=== PATIENT | male | born 1960 | race Caucasian/White ===

== ENCOUNTER 2016-04-24 07:53 | Day surgery (SDC) | payer MEDICAID ==
[~2016-04-24 07:53] MED LIST: Dexamethasone 4 MG/ML 5 ML MDV ONE; Lactated Ringers 1,000 ML IV SCH; Midazolam 1 MG/ML 2 ML SDV ONE; Ondansetron 4 MG/2 ML SDV ONE; Propofol 200 MG/20 ML SDV ONE; ceFAZolin 2 GM in Premix Bag 1 BAG IV SCH; fentaNYL 250 MCG/5 ML SDV ONE
[2016-04-24] MEDS ORDERED: Lidocaine 1% 50 ML MDV ONE (08:07)
--- NOTE | 2016-04-24 08:49 | PCM.PREANE ---
Preanesthetic Assessment - Anesthesia/Transfusion/Family Hx Anesthesia History: Prior Anesthesia Without Reaction Other Type of Anesthesia Reaction Comment: wakes up combative Transfusion History: No Prior Transfusion(s) - Physical Assessment NPO Status Date: 04/23/16 NPO Status Time: 20:00 O2 Sat by Pulse Oximetry: 96 Respiratory Rate: 18 Vital Signs: Last Vital Signs Temp 36.7 C 04/24/16 08:10 Pulse 77 04/24/16 08:10 Resp 18 04/24/16 08:10 BP 147/87 H 04/24/16 08:10 Pulse Ox 96 04/24/16 08:10 Height: 1.83 m Weight: 117 kg - Allergies Allergies/Adverse Reactions: Allergies Allergy/AdvReac Type Severity Reaction Status Date / Time No Known Allergies Allergy Verified 08/31/15 02:07 PreAnesthesia Questionnaire HEENT History: Reports: None Cardiovascular History: Reports: Hypertension (surgery cancelled one month ago for uncontrolled htn, meds adjusted, BP good today), Other (see below) (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) Gastrointestinal History: Reports: GERD Musculoskeletal History: Reports: Arthritis Other Musculoskeletal History: knee and shoulder pain Psychiatric History: Reports: Anxiety, Depression Endocrine/Metabolic History: Reports: Obesity/BMI 30+ - Infectious Disease History Infectious Disease History: Reports: None - Past Surgical History Head Surgeries/Procedures: Reports: None HEENT Surgical History: Reports: None GI Surgical History: Reports: Hernia, inguinal Neurological Surgical History: Reports: C-Spine Other Neurological Surgeries/Procedures: neck surgery, C-1, C-2 Other Musculoskeletal Surgeries/Procedures:: surgery on rt elbow for bone spurs - SUBSTANCE USE Smoking Status *Q: Former Smoker Tobacco Use Within Last Twelve Months: Other (see below) Second Hand Smoke Exposure: No Days Per Week of Alcohol Use: 7 Number of Drinks Per Day: 1 Total Drinks Per Week: 7 Recreational Drug Use History: No - HOME MEDS Home Medications: Home Meds Sertraline [Zoloft] 50 mg PO DAILY 05/02/15 [History] LORazepam [LORazepam] 1 tab PO ASDIRECTED 08/26/15 [History] Atenolol/Chlorthalidone [Atenolol-Chlorthalidone 100-25] 1 tab PO DAILY [History] traMADol HCl [Tramadol HCl] 1 tab PO ASDIRECTED PRN 04/22/16 [History] - CURRENT (IN HOUSE) MEDS Current Meds: Current Medications Lactated Ringer's (Ringers, Lactated) 1,000 mls @ 100 mls/hr IV ASDIRECTED ANMOL Last Admin: 04/24/16 08:12 Dose: 100 mls/hr Cefazolin Sodium/Dextrose 2 gm (/ Premix) 50 mls @ 100 mls/hr IV ONCALL ANMOL Discontinued Medications Dexamethasone (Dexamethasone) Confirm Administered Dose 20 mg .ROUTE .STK-MED ONE Stop: 04/24/16 07:26 Fentanyl (Sublimaze) Confirm Administered Dose 250 mcg .ROUTE .STK-MED ONE Stop: 04/24/16 07:27 Lidocaine HCl (Xylocaine-Mpf 1%) Confirm Administered Dose 5 ml .ROUTE .STK-MED ONE Stop: 04/24/16 07:26 Lidocaine HCl (Xylocaine 1%) Confirm Administered Dose 50 ml .ROUTE .STK-MED ONE Stop: 04/24/16 08:08 Midazolam HCl (Versed 1 Mg/Ml) Confirm Administered Dose 2 mg .ROUTE .STK-MED ONE Stop: 04/24/16 07:28 Ondansetron HCl (Zofran) Confirm Administered Dose 4 mg .ROUTE .STK-MED ONE Stop: 04/24/16 07:26 Propofol (Diprivan 20 Ml) Confirm Administered Dose 200 mg .ROUTE .STK-MED ONE Stop: 04/24/16 07:28 Preanesthetic Assessment - ANESTHESIA/TRANSFUSION/FAMILY HX Anesthesia/Transfusion History: Prior Anesthesia Other Type of Anesthesia Reaction Comment: wakes up combative Family History of Anesthesia Reaction: No - REVIEW OF SYSTEMS Constitutional: Reports: no symptoms ASPHALT BLENDER: Reports: no symptoms Respiratory: Reports: no symptoms Cardiovascular: Reports: no symptoms GI: Reports: no symptoms Other: Reports: None - PHYSICAL ASSESSMENT O2 Sat by Pulse Oximetry: 96 RR: 18 Vital Signs: Last Vital Signs Temp 36.7 C 04/24/16 08:10 Pulse 77 04/24/16 08:10 Resp 18 04/24/16 08:10 BP 147/87 H 04/24/16 08:10 Pulse Ox 96 04/24/16 08:10 Height: 1.83 m Weight: 117 kg NPO Status Date: 04/23/16 NPO Status Time: 20:00 ASA Class: 2 Mental Status: Alert & Oriented x3 Airway Class: Mallampati = 1 Dentition: Reports: Normal Dentition ROM/Head Extension: Full Respiratory Status: lungs clear to auscultation bilaterally Cardiovascular Status: regular rate & rhythm, normal S1, S2, no murmur - ALLERGIES Allergies/Adverse Reactions: Allergies Allergy/AdvReac Type Severity Reaction Status Date / Time No Known Allergies Allergy Verified 08/31/15 02:07 - BLOOD Blood Available: No - ANESTHESIA PLAN Preop Beta Melvin: No Anesthesia Type Planned: General Anesthesia - ACKNOWLEDGEMENTS Pt an Appropriate Candidate for the Planned Anesthesia: Yes Alternatives and Risks of Anesthesia Discussed w Pt/Guardian: Yes Pt/Guardian Understands and Agrees with Anesthesia Plan: Yes
--- NOTE | 2016-04-24 09:54 | PCM.OPNOTE ---
- General Post-Op/Procedure Note Date of Surgery/Procedure: 04/24/16 Operative Procedure(s): right knee arthroscopy with partial medial menisectomy Post-Op Diagnosis: right knee medial meniscus tear Anesthesia Technique: General LMA Primary Surgeon: Helen Patterson Manager Medical: Tanvi Bailey in mLs: 5 Condition: Good Free Text/Narrative:: tt=18 min #[id number]
[2016-04-24] MEDS ORDERED: fentaNYL 100 MCG/2 ML SDV IVPUSH PRN (10:19)
[2016-04-24] MEDS ORDERED: Acetaminophen/HYDROcodone 325-5 MG Tab PO PRN (10:50)
[2016-04-24 12:03] VITALS: BP 147/82
--- NOTE | 2016-04-24 12:08 | PCM.POSTAN ---
POST ANESTHESIA ASSESSMENT - MENTAL STATUS Mental Status: alert, oriented, somnolent - RESPIRATORY Respiratory Status: respiratory rate WNL, airway patent, O2 saturation stable - CARDIOVASCULAR CV Status: pulse rate WNL, blood pressure stable - GASTROINTESTINAL GI Status: no symptoms - POST OP HYDRATION Hydration Status: adequate & stable
--- NOTE | 2016-04-24 12:09 | PCM48HPAN ---
Post Anesthesia Note - EVALUATION WITHIN 48HRS OF ANESTHETIC Vital Signs in Normal Range: Yes Patient Participated in Evaluation: Yes Respiratory Function Stable: Yes Airway Patent: Yes Cardiovascular Function Stable: Yes Hydration Status Stable: Yes Pain Control Satisfactory: Yes Nausea and Vomiting Control Satisfactory: Yes Mental Status Recovered: Yes
--- NOTE | 2016-04-24 14:57 | OR ---
SURGEON: Helen Patterson MD DATE OF PROCEDURE: 04/24/2016 PREOPERATIVE DIAGNOSIS: Right knee medial meniscus tear. POSTOPERATIVE DIAGNOSES: 1. Right knee medial meniscus tear. 2. Degenerative joint disease, right knee. PROCEDURE: Right knee arthroscopy with partial medial meniscectomy. GUN STOCK MAKER: Tanvi Bailey PA-C. ANESTHESIA: General. ESTIMATED BLOOD LOSS: 5 mL. TOURNIQUET TIME: 80 minutes. COMPLICATIONS: None. DVT PROPHYLAXIS: Not indicated. IMPLANTS USED: None. BRIEF HISTORY: Anirudh is a 56-year-old male, who has had complaint of progressive right knee pain. An MRI did show a tear of the medial meniscus. At that time, surgery was recommended due to his lack of response to conservative treatment. The risks and goals of procedure were discussed with the patient and were documented preoperatively. He agreed to proceed. DESCRIPTION OF PROCEDURE: The patient was properly identified and brought to the operating room. He was transferred from the OR cart and placed on the operating table in supine position. General anesthesia was administered. After adequate anesthesia was obtained, a well-padded tourniquet was applied to the right lower extremity. The right lower extremity was then prepped in standard fashion using ChloraPrep solution. It was then sterilely draped. A time-out was performed to ensure correct site and procedure. Preoperative antibiotics were given. The surgical site had been marked preoperatively. An Esmarch was used to exsanguinate the right lower extremity and the tourniquet was inflated to 250 mmHg. A lateral portal arthrotomy was established. Blunt trocar and cannula were introduced into the suprapatellar pouch. Camera, inflow, and outflow were assembled. The suprapatellar pouch showed no significant synovitis. The patellofemoral joint was visualized. 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 The trochlear groove also showed grade 3 chondromalacia centrally. The patella tracked centrally. I then entered the lateral and medial gutter. No loose bodies were identified. I then entered the medial compartment. A medial portal arthrotomy was established. A probe was inserted. Degenerative tear of the posterior horn of the medial meniscus was found. This was probed and found to be unstable. Using a combination of biters and shaver, this was resected back to a stable remnant. The meniscus was again probed and found to be stable. The medial tibial plateau showed diffuse grade 3 chondromalacia over the medial portion. No loose cartilaginous flaps were identified. The medial femoral condyle also showed diffuse grade 3 chondromalacia along the weightbearing portion. Again, no loose flaps of cartilage were identified. I then entered the notch. Both the ACL and PCL were visualized and probed and found to be intact. I was able to enter the posterior medial and posterior lateral aspects of the knee. No loose bodies were identified. I finally entered the lateral compartment. The lateral tibial plateau showed diffuse degenerative changes consistent with grade 2 chondromalacia. The lateral femoral condyle showed minor softening only. The meniscus was extensively probed. There was some minor degenerative fraying along the central portion, however, no discrete tear was identified. I then reinspected the patellofemoral joint. Again noted was the grade 3 chondromalacia diffusely. No loose cartilaginous flaps were noted. A portion of the fat pad was resected for visualization. The instruments were then removed from the knee. The portal sites were closed with 3-0 nylon. Lidocaine 1% was injected along the portal tracts. Xeroform gauze was placed over the wound and a bulky dressing was applied. The tourniquet was then deflated. He was awakened from his anesthetic and transferred back to the operating room cart. He was brought to recovery room in stable condition. All needle and sponge counts were correct. HAILEY / SAM /[id number]
== END 2016-04-24 12:15 | disposition home or self-care (01) ==
LOC: MW.SDS 07:53
PROVIDERS: ATTEND Orthopaedic Surgery
DX: M23.221 Derangement of posterior horn of medial meniscus due to old tear or injury, right knee (principal); M17.11 Unilateral primary osteoarthritis, right knee; M22.41 Chondromalacia patellae, right knee; I10 Essential (primary) hypertension; K21.9 Gastro-esophageal reflux disease without esophagitis; F41.9 Anxiety disorder, unspecified; E87.6 Hypokalemia; Z79.899 Other long term (current) drug therapy; Z98.890 Other specified postprocedural states; Z78.9 Other specified health status; Z87.891 Personal history of nicotine dependence; Z72.0 Tobacco use
CPT/HCPCS: 29881; 36415; 84132; 93005; J1100; J2250; J2405; J3010; J7120; 01400; 88304; J2704

== ENCOUNTER 2016-10-10 08:55 | Day surgery (SDC) | payer MEDICAID ==
[~2016-10-10 08:55] MED LIST changes: -Dexamethasone 4 MG/ML 5 ML MDV ONE; +Lidocaine 2% 5 ML SDV ONE; -Midazolam 1 MG/ML 2 ML SDV ONE; -Ondansetron 4 MG/2 ML SDV ONE; -ceFAZolin 2 GM in Premix Bag 1 BAG IV SCH; +fentaNYL 100 MCG/2 ML SDV ONE; -fentaNYL 250 MCG/5 ML SDV ONE
--- NOTE | 2016-10-10 10:33 | PCM.PREANE ---
Preanesthetic Assessment - Anesthesia/Transfusion/Family Hx Anesthesia History: Prior Anesthesia Without Reaction Other Type of Anesthesia Reaction Comment: wakes up combative Family History of Anesthesia Reaction: No Transfusion History: No Prior Transfusion(s) Intubation History: Unknown - Review of Systems General: No Symptoms Pulmonary: No Symptoms Cardiovascular: No Symptoms Gastrointestinal: Other (recent hematemesis and rectal bleeding) Neurological: No Symptoms Other: Reports: None - Physical Assessment Height: 1.83 m Weight: 105.687 kg ASA Class: 2 Mental Status: Alert & Oriented x3 Airway Class: Mallampati = 2 Dentition: Reports: Normal Dentition Thyro-Mental Finger Breadths: 3 Mouth Opening Finger Breadths: 3 ROM/Head Extension: Limited/Partial Lungs: Clear to Auscultation, Normal Respiratory Effort Cardiovascular: Regular Rate, Regular Rhythm - Allergies Allergies/Adverse Reactions: Allergies Allergy/AdvReac Type Severity Reaction Status Date / Time No Known Allergies Allergy Verified 10/04/16 16:03 - Anesthesia Plan Pre-Op Medication Ordered: None - Acknowledgements Anesthesia Type Planned: MAC Pt an Appropriate Candidate for the Planned Anesthesia: Yes Alternatives and Risks of Anesthesia Discussed w Pt/Guardian: Yes Pt/Guardian Understands and Agrees with Anesthesia Plan: Yes PreAnesthesia Questionnaire HEENT History: Other HEENT History: uses reading glasses Cardiovascular History: Reports: Hypertension Other Cardiovascular History: quit taking meds, states has cut down on caffine Gastrointestinal History: Reports: Chronic Diarrhea, GERD, Helicobacter Pylori, PUD Genitourinary History: Reports: Other (See Below) (h/o benign cyst left kidney) Musculoskeletal History: Reports: Arthritis, Back Pain, Chronic, Fracture Other Musculoskeletal History: knee and shoulder pain, hx of fx wrist, tailbone and ribs Neurological History: Reports: Concussion Psychiatric History: Reports: Anxiety, Depression Endocrine/Metabolic History: Reports: Obesity/BMI 30+ - Infectious Disease History Infectious Disease History: Reports: None - Past Surgical History Head Surgeries/Procedures: Reports: None HEENT Surgical History: Reports: None GI Surgical History: Reports: Hernia, Inguinal Neurological Surgical History: Reports: C-Spine Other Neurological Surgeries/Procedures: neck surgery, C-1, C-2 Musculoskeletal Surgical History: Reports: Arthroscopic Knee (right), Other ( See Below) Other Musculoskeletal Surgeries/Procedures:: surgery on rt elbow for bone spurs - SUBSTANCE USE Smoking Status *Q: Current Every Day Smoker (quit 3 years ago) Tobacco Use Within Last Twelve Months: Smokeless Tobacco Second Hand Smoke Exposure: No Days Per Week of Alcohol Use: 7 Number of Drinks Per Day: 1 Total Drinks Per Week: 7 Recreational Drug Use History: Yes - HOME MEDS Home Medications: Home Meds Sertraline [Zoloft] 50 mg PO DAILY 05/02/15 [History] LORazepam 1 tab PO ASDIRECTED PRN 08/26/15 [History] Loperamide HCl [Loperamide] 2 mg PO ASDIRECTED PRN 10/03/16 [History] Naproxen Sodium [Aleve] 2 tab PO TID PRN 10/03/16 [History] - CURRENT (IN HOUSE) MEDS Current Meds: Current Medications Lactated Ringer's (Ringers, Lactated) 1,000 mls @ 125 mls/hr IV ASDIRECTED ANMOL Last Admin: 10/10/16 09:30 Dose: 125 mls/hr Discontinued Medications Fentanyl (Sublimaze) Confirm Administered Dose 100 mcg .ROUTE .STK-MED ONE Stop: 10/10/16 07:26 Lidocaine (Xylocaine-Mpf 2%) Confirm Administered Dose 5 ml .ROUTE .STK-MED ONE Stop: 10/10/16 07:26 Propofol (Diprivan 20 Ml) Confirm Administered Dose 400 mg .ROUTE .STK-MED ONE Stop: 10/10/16 07:26
[2016-10-10] MEDS ORDERED: Midazolam 1 MG/ML 2 ML SDV ONE (10:54)
[2016-10-10] MEDS ORDERED: Propofol 200 MG/20 ML SDV ONE (11:15)
--- NOTE | 2016-10-10 11:41 | PCM.OPNOTE ---
- General Post-Op/Procedure Note Date of Surgery/Procedure: 10/10/16 Operative Procedure(s): Esophagogastroduodenoscopy with biopsy. Colonoscopy. Pre Op Diagnosis: Hematemesis. Intermittent rectal bleeding. Post-Op Diagnosis: Moderate gastritis. Mild sigmoid diverticulosis. Anesthesia Technique: MAC (ASA II) Primary Surgeon: Cam Chaidez Cessation Systems Outreach Specialist: Veronica Quintana Condition: Good Free Text/Narrative:: Dictation [id number] CPT CODE 31607/61979
[2016-10-10] MEDS ORDERED: Lactated Ringers 1,000 ML IV SCH (11:45)
[2016-10-10 14:09] VITALS: BP 182/101
--- NOTE | 2016-10-10 15:18 | OR ---
SURGEON: Cam Chaidez M.D. DATE OF PROCEDURE: 10/10/2016 OPERATION PERFORMED: Colonoscopy. ANESTHESIA: MAC. ASA CLASSIFICATION: II. PREOPERATIVE DIAGNOSIS: Intermittent rectal bleeding. POSTOPERATIVE DIAGNOSIS: Mild sigmoid diverticulosis. DESCRIPTION OF PROCEDURE: With the patient having completed esophagogastroduodenoscopy with biopsy, he was now positioned in the left lateral decubitus position. The colonoscope was inserted into the rectum and advanced with moderate difficulty to the proximal ascending colon visualizing the cecum in the distance. The colonoscope was retroflexed to visualize the ascending colon from below then straightened and slowly withdrawn. The cecum, ascending colon, hepatic flexure, transverse colon, splenic flexure, and descending colon showed no tumors, polyps, diverticula, or angiodysplastic changes. A few small scattered diverticula were noted in the sigmoid colon. No stricture, spasm, or bleeding was noted. No polyps were encountered. The colonoscope was withdrawn to the rectum and retroflexed to visualize the anal orifice from above. No tumors, polyps, or acute hemorrhoidal changes were noted. The colonoscope was then straightened the rectum aspirated and the colonoscope removed. The patient tolerated the procedure well and was taken to recovery room in stable condition. KEELY VARGAS /[id number]
--- NOTE | 2016-10-10 15:24 | OR ---
SURGEON: Cam Chaidez M.D. DATE OF PROCEDURE: 10/10/2016 OPERATION PERFORMED: Esophagogastroduodenoscopy with biopsy. DISHING MACHINE OPERATOR: CHANCE Gil student. ANESTHESIA: MAC. ASA CLASSIFICATION: II. PREOPERATIVE DIAGNOSIS: Hematemesis. POSTOPERATIVE DIAGNOSIS: [id number] gastritis. DESCRIPTION OF PROCEDURE: The patient was taken to the endoscopy room and positioned on the endoscopy table in the supine position. Time-out was called for appropriate identification of the patient and procedure. Bite-block was placed between the patient's teeth. Monitored anesthesia care was provided. The gastroscope was inserted into the mouth and advanced without difficulty through the esophagus and stomach into the duodenum, where examination was carried out in a retrograde fashion. Duodenum shows no acute inflammatory changes or ulcerations. The stomach does show [id number] gastritis. Antral biopsies were obtained. The gastroscope was retroflexed to visualize the proximal stomach. No tumors or polyps were seen, and there were no ulcers noted proximally. The gastroscope was then straightened and slowly withdrawn. Stomach was aspirated as the scope was withdrawn. 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 Several biopsies of the esophagus were obtained. The remainder of the esophagus has healthy-appearing mucosa with good contractility. The vocal cords were visualized as the scope was withdrawn and noted to move symmetrically. The gastroscope was then removed with the patient having tolerated this portion of the procedure well. Following colonoscopy, he was taken to recovery room in a stable condition. KEELY / SAM /[id number]
== END 2016-10-10 12:10 | disposition home or self-care (01) ==
LOC: MW.SDS 08:55
PROVIDERS: ATTEND Surgery
DX: K29.50 Unspecified chronic gastritis without bleeding (principal); B96.81 Helicobacter pylori [H. pylori] as the cause of diseases classified elsewhere; K20.9 Esophagitis, unspecified; K57.30 Diverticulosis of large intestine without perforation or abscess without bleeding; M19.019 Primary osteoarthritis, unspecified shoulder; F41.9 Anxiety disorder, unspecified; K21.9 Gastro-esophageal reflux disease without esophagitis; I10 Essential (primary) hypertension; M17.11 Unilateral primary osteoarthritis, right knee; E66.9 Obesity, unspecified; F17.210 Nicotine dependence, cigarettes, uncomplicated; F32.9 Major depressive disorder, single episode, unspecified; Z87.442 Personal history of urinary calculi; Z79.899 Other long term (current) drug therapy; Z98.890 Other specified postprocedural states; Z68.31 Body mass index [BMI] 31.0-31.9, adult
CPT/HCPCS: 43239; 45378; J2250; J3010; J7120; 00740; 88305; 88312; J2704

== ENCOUNTER 2016-11-03 01:20 | Emergency (ER) | payer MEDICAID ==
--- NOTE | 2016-11-03 01:33 | EDM.PDOC ---
ED HPI GENERAL MEDICAL PROBLEM - General Chief Complaint: Back Pain or Injury Stated Complaint: BACK PAIN Time Seen by Provider: 11/03/16 01:33 Source of Information: Reports: Patient - History of Present Illness INITIAL COMMENTS - FREE TEXT/NARRATIVE: HISTORY AND PHYSICAL: History of present illness: Patient has a history of low back pain after a fall from roof 3 months prior, is undergone physical therapy x-rays on file with a wedge fracture over lumbar spine. He is had another fall over the last few days now complaining of right lower rib to flank pain, tonight he is clinically intoxicated presents with 4 out of 10 pain right lower rib margin there is a bruise associated which appears to be several days old Denies fever nausea vomiting chills sweats chest pain shortness breath headache dizziness or palpitation no bowel or urine symptoms Review of systems: As per history of present illness and below otherwise all systems reviewed and negative. Past medical history: As per history of present illness and as reviewed below otherwise noncontributory. Surgical history: As per history of present illness and as reviewed below otherwise noncontributory. Social history: No reported history of drug or alcohol abuse. Family history: As per history of present illness and as reviewed below otherwise noncontributory. Physical exam: HEENT: Atraumatic, normocephalic, pupils reactive, negative for conjunctival pallor or scleral icterus, mucous membranes moist, throat clear, neck supple, nontender, trachea midline. Lungs: Clear to auscultation, breath sounds equal bilaterally, chest nontender. Heart: S1S2, regular, negative for clicks, rubs, or JVD. Abdomen: Soft, nondistended, nontender. Negative for masses or hepatosplenomegaly. Negative for costovertebral tenderness. Pelvis: Stable nontender. Genitourinary: Deferred. Rectal: Deferred. Extremities: Atraumatic, negative for cords or calf pain. Neurovascular unremarkable. Neuro: Awake, alert, oriented. Cranial nerves II through XII unremarkable. Cerebellum unremarkable. Motor and sensory unremarkable throughout. Exam nonfocal. Diagnostics: []CBC, CMP, UA Chest 1 view with ribs Therapeutics: [] Impression: Clinical alcohol intoxication []Right-sided rib pain/flank pain Contusion right lower ribs Hypotension Patient eloped after being seen, he left prior to lab and x-ray Definitive disposition and diagnosis as appropriate pending reevaluation and review of above. right mid-back Pain Score (Numeric/FACES): 6 - Related Data Allergies Allergy/AdvReac Type Severity Reaction Status Date / Time No Known Allergies Allergy Verified 11/03/16 01:28 Home Meds: Home Meds Sertraline [Zoloft] 50 mg PO DAILY 05/02/15 [History] LORazepam 2 tab PO ASDIRECTED PRN 08/26/15 [History] Ampicillin [Pharmacy to Dose - Ampicillin] 0 dose PO QID 11/03/16 [History] Sucralfate 0 gm PO TID 11/03/16 [History] Past Medical History HEENT History: Other HEENT History: uses reading glasses Cardiovascular History: Reports: Hypertension Other Cardiovascular History: quit taking meds, states has cut down on caffine Gastrointestinal History: Reports: Chronic Diarrhea, GERD, Helicobacter Pylori, PUD Genitourinary History: Reports: Other (See Below) (h/o benign cyst left kidney) Musculoskeletal History: Reports: Arthritis, Back Pain, Chronic, Fracture Other Musculoskeletal History: knee and shoulder pain, hx of fx wrist, tailbone and ribs Neurological History: Reports: Concussion Psychiatric History: Reports: Anxiety, Depression Endocrine/Metabolic History: Reports: Obesity/BMI 30+ - Infectious Disease History Infectious Disease History: Reports: None - Past Surgical History Head Surgeries/Procedures: Reports: None HEENT Surgical History: Reports: None GI Surgical History: Reports: Hernia, Inguinal Neurological Surgical History: Reports: C-Spine Other Neurological Surgeries/Procedures: neck surgery, C-1, C-2 Musculoskeletal Surgical History: Reports: Arthroscopic Knee (right), Other ( See Below) Other Musculoskeletal Surgeries/Procedures:: surgery on rt elbow for bone spurs Social & Family History - Family History Family Medical History: Noncontributory - Tobacco Use Smoking Status *Q: Current Every Day Smoker (quit 3 years ago) Years of Tobacco use: 30 Packs/Tins Daily: 1 Month Tobacco Last Used: quit smoking 2 1/2 yrs ago Second Hand Smoke Exposure: No - Caffeine Use Caffeine Use: Reports: Coffee - Alcohol Use Days Per Week of Alcohol Use: 7 Number of Drinks Per Day: 1 Total Drinks Per Week: 7 - Recreational Drug Use Recreational Drug Use: Yes Drug Use in Last 12 Months: No - Living Situation & Occupation Living situation: Reports: Single Occupation: Disabled ED ROS GENERAL - Review of Systems Review Of Systems: ROS reveals no pertinent complaints other than HPI. ED EXAM, GENERAL - Physical Exam Exam: See Below Course - Vital Signs Last Recorded V/S: Last Vital Signs Temp 36.6 C 11/03/16 01:20 Pulse 108 H 11/03/16 01:20 Resp 18 11/03/16 01:20 BP 97/66 11/03/16 01:20 Pulse Ox 96 11/03/16 01:20 - Orders/Labs/Meds Orders: Active Orders 24 hr Category Date Time Status Ribs 2V w Chest Rt [CR] Stat Exams 11/03/16 01:46 Ordered BMP [BASIC METABOLIC PANEL,BMP] [CHEM] Stat Lab 11/03/16 01:35 Ordered CBC WITH AUTO DIFF [HEME] Stat Lab 11/03/16 01:35 Ordered UA W/MICROSCOPIC [URIN] Stat Lab 11/03/16 01:37 Uncollected Departure - Departure Time of Disposition: 02:53 Disposition: Eloped 07 Condition: Fair Clinical Impression: Rib pain on right side - Discharge Information Referrals: Ronnie Ndiaye MD [Primary Care Provider] - Forms: ED Department Discharge - My Orders Last 24 Hours: My Active Orders 11/03/16 01:35 BMP [BASIC METABOLIC PANEL,BMP] [CHEM] Stat CBC WITH AUTO DIFF [HEME] Stat 11/03/16 01:37 UA W/MICROSCOPIC [URIN] Stat 11/03/16 01:46 Ribs 2V w Chest Rt [CR] Stat - Assessment/Plan Last 24 Hours: My Active Orders 11/03/16 01:35 BMP [BASIC METABOLIC PANEL,BMP] [CHEM] Stat CBC WITH AUTO DIFF [HEME] Stat 11/03/16 01:37 UA W/MICROSCOPIC [URIN] Stat 11/03/16 01:46 Ribs 2V w Chest Rt [CR] Stat
[2016-11-03 01:37] VITALS: BP 97/66
== END 2016-11-03 02:00 | disposition left against medical advice (07) ==
LOC: MW.ED 01:20
DX: S20.211A Contusion of right front wall of thorax, initial encounter (principal); F10.120 Alcohol abuse with intoxication, uncomplicated; E66.9 Obesity, unspecified; F41.9 Anxiety disorder, unspecified; F32.9 Major depressive disorder, single episode, unspecified; F17.210 Nicotine dependence, cigarettes, uncomplicated; W13.2XXA Fall from, out of or through roof, initial encounter
CPT/HCPCS: 99282; 99283

== ENCOUNTER 2016-12-14 09:01 | Emergency (ER) | payer MEDICAID ==
[2016-12-14] MEDS ORDERED: Bacitracin Oint 1 GM U/D Packet TOP ONE (09:27)
[2016-12-14 09:30] VITALS: BP 195/98
--- NOTE | 2016-12-14 09:33 | EDM.PDOC ---
ED HPI GENERAL MEDICAL PROBLEM - General Chief Complaint: Behavioral/Psych Stated Complaint: MENTAL HEALTH HOLD Time Seen by Provider: 12/14/16 09:19 - History of Present Illness INITIAL COMMENTS - FREE TEXT/NARRATIVE: HISTORY AND PHYSICAL: History of present illness: The patient is a 56-year-old male who states a history of hypertension anxiety and depression and follows in our family practice clinic and presents with police lieutenant patrol after his mother contacted the police stating he was trying to hurt himself. According to the police lieutenant patrol mom called saying that he came out at her with a knife holding it to his wrist and he has some superficial lacerations on his wrists here in the ED. He told the triage nurse that this occurred on a garage door and that he did not try to hurt himself. According to police when they arrived they found a knife in his pocket that had blood on it. They currently come here for medical and mental health evaluation. The patient is not very forthcoming with me and will not offer any history. He clearly smells of alcohol and says that he last drank last evening because he was watching a basketball game. He denies any recent alcohol use and says he's been eating and drinking normally and has no chest pain shortness of breath abdominal pain or any other complaints. He seems very unconcerned about his wounds. He is unsure of his last tetanus shot but per the computer it was last given April 2015, thus he is up-to-date. The patient states he takes lorazepam as needed and that was prescribed by Dr. Pisano and he does not see a mental health professional. According to the police of the [facility], the mother stated to them that he has been depressed for the last 3-5 days and this was the culmination of that. Again the patient is not forthcoming and will not offer me any of this history. The patient does say inappropriate comments such as he tried to "connected with the officer on [employer]" and he was first to me that he "Might go bonkers here". Review of systems: As per history of present illness and below otherwise all systems reviewed and negative. Past medical history: As per history of present illness and as reviewed below otherwise noncontributory. Surgical history: As per history of present illness and as reviewed below otherwise noncontributory. Social history: No reported history of drug or alcohol abuse. Family history: As per history of present illness and as reviewed below otherwise noncontributory. Physical exam: Gen.: Well-developed well-nourished man who is nontoxic and has a smell of alcohol on his breath. He is erratic in his answering. He gives inappropriate answers and is very withdrawn and not talkative with me. In fact on my exam of his extremities he was very resistant to even seeing his lacerations. HEENT: Atraumatic, normocephalic, pupils reactive, negative for conjunctival pallor or scleral icterus, mucous membranes tacky, throat clear, neck supple, nontender, trachea midline. Lungs: Clear to auscultation, breath sounds equal bilaterally, chest nontender. Heart: S1S2, regular rate and rhythm no overt murmurs Abdomen: Soft, nondistended, nontender. Negative for masses or hepatosplenomegaly. Negative for costovertebral tenderness. Pelvis: Stable nontender. Genitourinary: Deferred. Rectal: Deferred. Extremities: Atraumatic except for several longitudinal superficial appearing lacerations on bilateral forearms. There is no active bleeding swelling or soft tissue derangements. The legs are, negative for cords or calf pain. Neurovascular unremarkable. Neuro: Awake, alert, oriented. Cranial nerves II through XII unremarkable. Motor and sensory unremarkable throughout. Exam nonfocal. Diagnostics: CBC CMP EtOH aspirin and Tylenol levels TSH UA UDS EKG Therapeutics: Wound care to forearms Tdap is up-to-date last given April 2015 0935: Dr Garay at [facility] was contacted and they do not have an available bed for this patient for transfer. 0945: Dr. Duran at [facility] in [place] was contacted and she has accepted the patient for transfer. Please note that all lab tests have been reviewed by me with the exception of the TSH which is pending and will be faxed to the receiving hospital. I have discussed with the patient his testing results including the blood alcohol level of 274 and the reasons for need for transfer. Patient again seems somewhat nonchalant and on interested in my conversation with him and the need for this transfer but is cooperative. He again is not very forthcoming about today's events nor will he directly answer any questions about today's events with me. Impression: Acute depression with suicide attempt/superficial forearm lacerations Definitive disposition and diagnosis as appropriate pending reevaluation and review of above. bilateral wrist Pain Score (Numeric/FACES): 5 - Related Data Allergies Allergy/AdvReac Type Severity Reaction Status Date / Time No Known Allergies Allergy Verified 12/14/16 09:21 Home Meds: Home Meds Sertraline [Zoloft] 50 mg PO DAILY 05/02/15 [History] LORazepam 4 tab PO DAILY PRN 08/26/15 [History] Ampicillin [Pharmacy to Dose - Ampicillin] 0 dose PO QID 11/03/16 [History] Sucralfate 0 gm PO TID 11/03/16 [History] Atenolol 25 mg PO DAILY 12/14/16 [History] Past Medical History - Past Health History Medical/Surgical History: Denies Medical/Surgical History HEENT History: Other HEENT History: uses reading glasses Cardiovascular History: Reports: Hypertension Other Cardiovascular History: quit taking meds, states has cut down on caffine Gastrointestinal History: Reports: Chronic Diarrhea, GERD, Helicobacter Pylori, PUD Genitourinary History: Reports: Other (See Below) (h/o benign cyst left kidney) Musculoskeletal History: Reports: Arthritis, Back Pain, Chronic, Fracture Other Musculoskeletal History: knee and shoulder pain, hx of fx wrist, tailbone and ribs Neurological History: Reports: Concussion Psychiatric History: Reports: Anxiety, Depression Endocrine/Metabolic History: Reports: Obesity/BMI 30+ - Infectious Disease History Infectious Disease History: Reports: None - Past Surgical History Head Surgeries/Procedures: Reports: None HEENT Surgical History: Reports: None GI Surgical History: Reports: Hernia, Inguinal Neurological Surgical History: Reports: C-Spine Other Neurological Surgeries/Procedures: neck surgery, C-1, C-2 Musculoskeletal Surgical History: Reports: Arthroscopic Knee (right), Other ( See Below) Other Musculoskeletal Surgeries/Procedures:: surgery on rt elbow for bone spurs Social & Family History - Family History Family Medical History: Noncontributory - Tobacco Use Smoking Status *Q: Current Every Day Smoker (quit 3 years ago) Years of Tobacco use: 30 Packs/Tins Daily: 1 Month Tobacco Last Used: quit smoking 2 1/2 yrs ago Second Hand Smoke Exposure: No - Caffeine Use Caffeine Use: Reports: Coffee - Alcohol Use Days Per Week of Alcohol Use: 7 Number of Drinks Per Day: 1 Total Drinks Per Week: 7 - Recreational Drug Use Recreational Drug Use: Yes Drug Use in Last 12 Months: No - Living Situation & Occupation Living situation: Reports: Single Occupation: Disabled ED ROS GENERAL - Review of Systems Review Of Systems: ROS reveals no pertinent complaints other than HPI. ED EXAM, GENERAL - Physical Exam Exam: See Below (See dictation) Course - Vital Signs Last Recorded V/S: Last Vital Signs Temp 36.8 C 12/14/16 09:22 Pulse 113 H 12/14/16 09:22 Resp 18 12/14/16 09:22 BP 195/98 H 12/14/16 09:22 Pulse Ox 96 12/14/16 09:22 - Orders/Labs/Meds Orders: Active Orders 24 hr Category Date Time Status Communication Order [RC] STAT Care 12/14/16 09:27 Active EKG Documentation Completion [RC] STAT Care 12/14/16 09:26 Active Labs: Laboratory Tests 12/14/16 12/14/16 12/14/16 Range/Units 09:27 09:27 09:37 WBC 5.43 (4.0-11.0) K/uL RBC 4.69 (4.50-5.90) M/uL Hgb 12.9 L (13.0-17.0) g/dL Hct 38.9 (38.0-50.0) % MCV 82.9 (80.0-98.0) fL MCH 27.5 (27.0-32.0) pg MCHC 33.2 (31.0-37.0) g/dL RDW Std Deviation 67.0 H (28.0-62.0) fl RDW Coeff of Mani 23 H (11.0-15.0) % Plt Count 211 (150-400) K/uL MPV 9.80 (7.40-12.00) fL Neut % (Auto) 33.1 L (48.0-80.0) % Lymph % (Auto) 57.8 H (16.0-40.0) % [place] % (Auto) 7.7 (0.0-15.0) % Eos % (Auto) 0.7 (0.0-7.0) % Baso % (Auto) 0.7 (0.0-1.5) % Neut # (Auto) 1.8 (1.4-5.7) K/uL Lymph # (Auto) 3.1 H (0.6-2.4) K/uL [place] # (Auto) 0.4 (0.0-0.8) K/uL Eos # (Auto) 0.0 (0.0-0.7) K/uL Baso # (Auto) 0.0 (0.0-0.1) K/uL Nucleated RBC % 0.0 /100WBC Nucleated RBCs # 0 K/uL Sodium (136-146) mmol/L Potassium (3.5-5.1) mmol/L Chloride (98-110) mmol/L Carbon Dioxide (21-31) mmol/L BUN (6.0-23.0) mg/dL Creatinine (0.6-1.5) mg/dL Est Cr Clr Drug Dosing Estimated GFR (MDRD) ml/min Glucose (60-110) mg/dL Calcium (8.8-10.8) mg/dL Total Bilirubin (0.1-1.5) mg/dL AST (5-40) IU/L ALT (8-54) IU/L Alkaline Phosphatase (40-150) Total Protein (6.0-8.0) g/dL Albumin (3.5-5.0) g/dL Globulin (2.0-3.5) g/dL Albumin/Globulin Ratio (1.3-2.8) TSH 3rd Generation (0.47-5.0) uIU/mL Urine Color YELLOW Urine Appearance CLEAR Urine pH 6.0 (5.0-8.0) Ur Specific Wilbur <= 1.005 (1.001-1.035) Urine Protein NEGATIVE (NEGATIVE) mg/dL Urine Glucose (UA) NEGATIVE (NEGATIVE) mg/dL Urine Ketones NEGATIVE (NEGATIVE) mg/dL Urine Occult Blood TRACE-LYSED (NEGATIVE) Urine Nitrite NEGATIVE (NEGATIVE) Urine Bilirubin NEGATIVE (NEGATIVE) Urine Urobilinogen 0.2 (<2.0) EU/dL Ur Leukocyte Esterase NEGATIVE (NEGATIVE) Urine RBC RARE (0-2/HPF) Urine WBC NONE SEEN (0-5/HPF) Ur Epithelial Cells RARE (NONE-FEW) Urine Bacteria NOT SEEN (NEGATIVE) Salicylates (0-20) mg/dL Urine Opiates Screen NEGATIVE (NEGATIVE) Ur Oxycodone Screen NEGATIVE (NEGATIVE) Urine Methadone Screen NEGATIVE (NEGATIVE) Acetaminophen ug/mL Ur Barbiturates Screen NEGATIVE (NEGATIVE) Ur Phencyclidine Scrn NEGATIVE (NEGATIVE) Ur Amphetamine Screen NEGATIVE (NEGATIVE) U Methamphetamines Scrn NEGATIVE (NEGATIVE) U Benzodiazepines Scrn NEGATIVE (NEGATIVE) U Cocaine Metab Screen NEGATIVE (NEGATIVE) U Marijuana (THC) Screen NEGATIVE (NEGATIVE) Ethyl Alcohol mg/dL 12/14/16 Range/Units 09:37 WBC (4.0-11.0) K/uL RBC (4.50-5.90) M/uL Hgb (13.0-17.0) g/dL Hct (38.0-50.0) % MCV (80.0-98.0) fL MCH (27.0-32.0) pg MCHC (31.0-37.0) g/dL RDW Std Deviation (28.0-62.0) fl RDW Coeff of Mani (11.0-15.0) % Plt Count (150-400) K/uL MPV (7.40-12.00) fL Neut % (Auto) (48.0-80.0) % Lymph % (Auto) (16.0-40.0) % [place] % (Auto) (0.0-15.0) % Eos % (Auto) (0.0-7.0) % Baso % (Auto) (0.0-1.5) % Neut # (Auto) (1.4-5.7) K/uL Lymph # (Auto) (0.6-2.4) K/uL [place] # (Auto) (0.0-0.8) K/uL Eos # (Auto) (0.0-0.7) K/uL Baso # (Auto) (0.0-0.1) K/uL Nucleated RBC % /100WBC Nucleated RBCs # K/uL Sodium 140 (136-146) mmol/L Potassium 3.9 (3.5-5.1) mmol/L Chloride 104 (98-110) mmol/L Carbon Dioxide 24 (21-31) mmol/L BUN 20 (6.0-23.0) mg/dL Creatinine 1.1 (0.6-1.5) mg/dL Est Cr Clr Drug Dosing TNP Estimated GFR (MDRD) > 60.0 ml/min Glucose 108 (60-110) mg/dL Calcium 8.7 L (8.8-10.8) mg/dL Total Bilirubin 0.3 (0.1-1.5) mg/dL AST 40 (5-40) IU/L ALT 28 (8-54) IU/L Alkaline Phosphatase 186 H (40-150) Total Protein 7.2 (6.0-8.0) g/dL Albumin 4.0 (3.5-5.0) g/dL Globulin 3.2 (2.0-3.5) g/dL Albumin/Globulin Ratio 1.3 (1.3-2.8) TSH 3rd Generation 2.66 (0.47-5.0) uIU/mL Urine Color Urine Appearance Urine pH (5.0-8.0) Ur Specific Wilbur (1.001-1.035) Urine Protein (NEGATIVE) mg/dL Urine Glucose (UA) (NEGATIVE) mg/dL Urine Ketones (NEGATIVE) mg/dL Urine Occult Blood (NEGATIVE) Urine Nitrite (NEGATIVE) Urine Bilirubin (NEGATIVE) Urine Urobilinogen (<2.0) EU/dL Ur Leukocyte Esterase (NEGATIVE) Urine RBC (0-2/HPF) Urine WBC (0-5/HPF) Ur Epithelial Cells (NONE-FEW) Urine Bacteria (NEGATIVE) Salicylates < 5.0 (0-20) mg/dL Urine Opiates Screen (NEGATIVE) Ur Oxycodone Screen (NEGATIVE) Urine Methadone Screen (NEGATIVE) Acetaminophen < 3.0 ug/mL Ur Barbiturates Screen (NEGATIVE) Ur Phencyclidine Scrn (NEGATIVE) Ur Amphetamine Screen (NEGATIVE) U Methamphetamines Scrn (NEGATIVE) U Benzodiazepines Scrn (NEGATIVE) U Cocaine Metab Screen (NEGATIVE) U Marijuana (THC) Screen (NEGATIVE) Ethyl Alcohol 274.3 mg/dL Meds: Medications Discontinued Medications Generic Name Dose Route Start Last Admin Trade Name Freq PRN Reason Stop Dose Admin Bacitracin 1 dose 12/14/16 09:27 12/14/16 09:50 Bacitracin Oint 1 Gm TOP 12/14/16 09:28 1 dose ONETIME ONE Administration Departure - Departure Time of Disposition: 10:35 Disposition: DC/Tfer to Psych Hosp/Unit 65 Condition: Good Clinical Impression: Depressive disorder, Alcohol abuse, Suicide attempt Forearm laceration Qualifiers: Encounter type: initial encounter Laterality: unspecified laterality Qualified Code(s): S51.819A - Laceration without foreign body of unspecified forearm, initial encounter - Discharge Information Referrals: PCP,None [Primary Care Provider] - Forms: ED Department Discharge - My Orders Last 24 Hours: My Active Orders 12/14/16 09:26 EKG Documentation Completion [RC] STAT 12/14/16 09:27 Communication Order [RC] STAT - Assessment/Plan Last 24 Hours: My Active Orders 12/14/16 09:26 EKG Documentation Completion [RC] STAT 12/14/16 09:27 Communication Order [RC] STAT
[2016-12-14 10:15] LABS: ACETAMINOPHEN < 3.0 ug/mL; CHLORIDE,CL 104 mmol/L (98-110); SODIUM,NA 140 mmol/L (136-146)
== END 2016-12-14 11:25 ==
LOC: MW.ED 09:01
DX: S51.812A Laceration without foreign body of left forearm, initial encounter (principal); S51.811A Laceration without foreign body of right forearm, initial encounter; F32.9 Major depressive disorder, single episode, unspecified; F17.210 Nicotine dependence, cigarettes, uncomplicated; Z79.899 Other long term (current) drug therapy; X78.1XXA Intentional self-harm by knife, initial encounter
CPT/HCPCS: 36415; 80053; 80305; 81001; 84443; 85025; 93005; 99285; G0480; 99284

== ENCOUNTER 2017-06-10 18:18 | Emergency (ER) | payer MEDICAID ==
--- NOTE | 2017-06-10 18:41 | EDM.PDOC ---
ED HPI GENERAL MEDICAL PROBLEM - General Chief Complaint: Respiratory Problem Stated Complaint: COUGH/CONGESTION TROUBE BREATHING Time Seen by Provider: 06/10/17 18:41 Source of Information: Reports: Patient - History of Present Illness INITIAL COMMENTS - FREE TEXT/NARRATIVE: HISTORY AND PHYSICAL: History of present illness: [Patient has history of cough for 2 weeks with intermittent wheeze and chest tightness he is able speak in full sentences no distress no association with chest pain or diaphoresis no exertional component patient has raspy cough significant smoking history although he has not smoked in 5 years No fever nausea vomiting chills sweats no chest pain headache dizziness or palpitation no bowel or urine symptoms] Review of systems: As per history of present illness and below otherwise all systems reviewed and negative. Past medical history: As per history of present illness and as reviewed below otherwise noncontributory. Surgical history: As per history of present illness and as reviewed below otherwise noncontributory. Social history: No reported history of drug or alcohol abuse. Family history: As per history of present illness and as reviewed below otherwise noncontributory. Physical exam: HEENT: Atraumatic, normocephalic, pupils reactive, negative for conjunctival pallor or scleral icterus, mucous membranes moist, throat clear, neck supple, nontender, trachea midline. Lungs: Clear to auscultation, breath sounds equal bilaterally, chest nontender. Heart: S1S2, regular, negative for clicks, rubs, or JVD. Abdomen: Soft, nondistended, nontender. Negative for masses or hepatosplenomegaly. Negative for costovertebral tenderness. Pelvis: Stable nontender. Genitourinary: Deferred. Rectal: Deferred. Extremities: Atraumatic, negative for cords or calf pain. Neurovascular unremarkable. Neuro: Awake, alert, oriented. Cranial nerves II through XII unremarkable. Cerebellum unremarkable. Motor and sensory unremarkable throughout. Exam nonfocal. Diagnostics: [Chest 2 views ] Therapeutics: [Solu-Medrol 125 mg IM DuoNeb Z-Cam Medrol Dosepak HFA ] Impression: [ acute bronchitis ] Definitive disposition and diagnosis as appropriate pending reevaluation and review of above. - Related Data Allergies Allergy/AdvReac Type Severity Reaction Status Date / Time No Known Allergies Allergy Verified 06/10/17 18:41 Home Meds: Home Meds Esomeprazole [NexIUM] 40 mg PO DAILY 06/10/17 [History] LORazepam [Lorazepam] 2 mg PO DAILY 06/10/17 [History] QUEtiapine Fumarate [Seroquel] 25 mg PO BEDTIME 06/10/17 [History] traZODone 50 mg PO BEDTIME 06/10/17 [History] Past Medical History - Past Health History Medical/Surgical History: Denies Medical/Surgical History HEENT History: Other HEENT History: uses reading glasses Cardiovascular History: Reports: Hypertension Other Cardiovascular History: quit taking meds, states has cut down on caffine Respiratory History: Reports: None Gastrointestinal History: Reports: Chronic Diarrhea, GERD, Helicobacter Pylori, PUD Genitourinary History: Reports: Other (See Below) (h/o benign cyst left kidney) Musculoskeletal History: Reports: Arthritis, Back Pain, Chronic, Fracture Other Musculoskeletal History: knee and shoulder pain, hx of fx wrist, tailbone and ribs Neurological History: Reports: Concussion Psychiatric History: Reports: Anxiety, Depression Endocrine/Metabolic History: Reports: Obesity/BMI 30+ Hematologic History: Reports: None Immunologic History: Reports: None Oncologic (Cancer) History: Reports: None Dermatologic History: Reports: None - Infectious Disease History Infectious Disease History: Reports: None - Past Surgical History Head Surgeries/Procedures: Reports: None HEENT Surgical History: Reports: None GI Surgical History: Reports: Hernia, Inguinal Neurological Surgical History: Reports: C-Spine Other Neurological Surgeries/Procedures: neck surgery, C-1, C-2 Musculoskeletal Surgical History: Reports: Arthroscopic Knee (right), Other ( See Below) Other Musculoskeletal Surgeries/Procedures:: surgery on rt elbow for bone spurs Social & Family History - Family History Family Medical History: Noncontributory - Tobacco Use Smoking Status *Q: Current Every Day Smoker (quit 3 years ago) Years of Tobacco use: 30 Packs/Tins Daily: 1 Month/Year Tobacco Last Used: quit smoking 2 1/2 yrs ago Second Hand Smoke Exposure: No - Caffeine Use Caffeine Use: Reports: Coffee - Alcohol Use Days Per Week of Alcohol Use: 7 Number of Drinks Per Day: 1 Total Drinks Per Week: 7 - Recreational Drug Use Recreational Drug Use: Yes Drug Use in Last 12 Months: No - Living Situation & Occupation Living situation: Reports: Single Occupation: Disabled ED ROS GENERAL - Review of Systems Review Of Systems: ROS reveals no pertinent complaints other than HPI. ED EXAM, GENERAL - Physical Exam Exam: See Below Course - Vital Signs Last Recorded V/S: Last Vital Signs Temp 98.7 F 06/10/17 18:46 Pulse 97 06/10/17 18:46 Resp 18 06/10/17 18:46 BP 180/109 H 06/10/17 18:46 Pulse Ox 96 06/10/17 18:46 - Orders/Labs/Meds Orders: Active Orders 24 hr Category Date Time Status RT Aerosol Therapy [RC] ASDIRECTED Care 06/10/17 18:46 Active Chest 2V [CR] Stat Exams 06/10/17 18:45 Taken Meds: Medications Discontinued Medications Generic Name Dose Route Start Last Admin Trade Name Freq PRN Reason Stop Dose Admin Albuterol/Ipratropium 3 ml 06/10/17 18:45 06/10/17 18:56 Duoneb 3.0-0.5 Mg/3 Ml NEB 06/10/17 18:46 3 ml ONETIME ONE Administration Methylprednisolone Sodium Succinate 125 mg 06/10/17 18:59 06/10/17 19:13 Solu-Medrol IM 06/10/17 19:00 125 mg ONETIME ONE Administration Departure - Departure Time of Disposition: 19:45 Disposition: Home, Self-Care 01 Condition: Good Clinical Impression: Acute bronchitis - Discharge Information Referrals: Ronnie Ndiaye MD [Primary Care Provider] - Forms: ED Department Discharge Additional Instructions: The following information is given to patients seen in the emergency department who are being discharged to home. This information is to outline your options for follow-up care. We provide all patients seen in our emergency department with a follow-up referral. The need for follow-up, as well as the timing and circumstances, are variable depending upon the specifics of your emergency department visit. If you don't have a primary care physician on staff, we will provide you with a referral. We always advise you to contact your personal physician following an emergency department visit to inform them of the circumstance of the visit and for follow-up with them and/or the need for any referrals to a consulting specialist. The emergency department will also refer you to a specialist when appropriate. This referral assures that you have the opportunity for follow-up care with a specialist. All of these measure are taken in an effort to provide you with optimal care, which includes your follow-up. Under all circumstances we always encourage you to contact your private physician who remains a resource for coordinating your care. When calling for follow-up care, please make the office aware that this follow-up is from your recent emergency room visit. If for any reason you are refused follow-up, please contact the [facility] emergency department at and asked to speak to the emergency department charge nurse. - My Orders Last 24 Hours: My Active Orders 06/10/17 18:45 Chest 2V [CR] Stat 06/10/17 18:46 RT Aerosol Therapy [RC] ASDIRECTED - Assessment/Plan Last 24 Hours: My Active Orders 06/10/17 18:45 Chest 2V [CR] Stat 06/10/17 18:46 RT Aerosol Therapy [RC] ASDIRECTED
[2017-06-10] MEDS ORDERED: Albuterol/Ipratropium 3.0-0.5 MG/3 ML Neb Soln NEB ONE (18:45)
[2017-06-10] MEDS ORDERED: methylPREDNISolone Sodium Succinate 125 MG/2 ML SDV IM ONE (18:59)
[2017-06-10 20:08] VITALS: BP 160/92
--- NOTE | 2017-06-11 10:08 | CR ---
EXAM DATE: 06/10/17 PATIENT'S AGE: 57 Patient: LUZ MARIA WANG Facility: [place], [place] Site . Site : 1960 Study: XRay Chest [id number]/1/2018 7:29:44 PM Ordering Physician: Choco Granado Final Report: INDICATION: chest pressure x5 wks, sob, cough INDICATION: Chest pain, cough, shortness of breath. TECHNIQUE: Two-view. FINDINGS: Heart size is normal. Lungs are free of significant infiltrate. IMPRESSION: No significant infiltrate is identified. Dictated by Kimo Celis MD @ 06/10/2017 7:32:55 PM Dictated by: Kimo Celis MD @ 06/10/2017 19:33:04 (Electronic Signature) Report Signed by Proxy. K[facility]OCKER HOSPITALAddis
== END 2017-06-10 20:05 | disposition home or self-care (01) ==
LOC: MW.ED 18:18
DX: J20.9 Acute bronchitis, unspecified (principal); I10 Essential (primary) hypertension; F17.210 Nicotine dependence, cigarettes, uncomplicated; F41.9 Anxiety disorder, unspecified; F32.9 Major depressive disorder, single episode, unspecified; Z79.899 Other long term (current) drug therapy
CPT/HCPCS: 71046; 94640; 96372; 99284; J2930; 99283

== ENCOUNTER 2017-06-11 01:25 | Emergency (ER) | payer MEDICAID ==
[2017-06-11] MEDS ORDERED: cefTRIAXone 1,000 MG in Lidocaine 1% 4 ML IM ONE (01:31)
--- NOTE | 2017-06-11 01:31 | EDM.PDOC ---
ED HPI GENERAL MEDICAL PROBLEM - General Stated Complaint: DRILL MICAH THROUGH HIS RIGHT HAND Time Seen by Provider: 06/11/17 01:30 Source of Information: Reports: Patient - History of Present Illness INITIAL COMMENTS - FREE TEXT/NARRATIVE: HISTORY AND PHYSICAL: History of present illness: [Patient presents after working in his garage doing some woodworking, he is working with a new tools/drill replacing a bit, trigger mechanism was compressed spinning abated driving the chart which was a quarter inch Joni wrench to the palmar surface of his hand causing an L-shaped tear The thenar eminence of the right hand 2.5 cm x 1 cm. , The Joni regular wrench did protrude through the anatomical snuffbox exiting near the second metacarpal, I did provide some local anesthetic with lidocaine, and removed the Joni wrench continuing it through the hand without complication or complaint. Patient declined pain medication as he desired to drive home after removal No fever nausea vomiting chills sweats hand is unaffected above the wrist significant for the laceration on the palmar surface as well as puncture wound on the dorsum of the hand snuffbox entire limb is neurovascularly intact full range of motion of the thumb Review of systems: As per history of present illness and below otherwise all systems reviewed and negative. Past medical history: As per history of present illness and as reviewed below otherwise noncontributory. Surgical history: As per history of present illness and as reviewed below otherwise noncontributory. Social history: No reported history of drug or alcohol abuse. Family history: As per history of present illness and as reviewed below otherwise noncontributory. Physical exam: HEENT: Atraumatic, normocephalic, pupils reactive, negative for conjunctival pallor or scleral icterus, mucous membranes moist, throat clear, neck supple, nontender, trachea midline. Lungs: Clear to auscultation, breath sounds equal bilaterally, chest nontender. Heart: S1S2, regular, negative for clicks, rubs, or JVD. Abdomen: Soft, nondistended, nontender. Negative for masses or hepatosplenomegaly. Negative for costovertebral tenderness. Pelvis: Stable nontender. Genitourinary: Deferred. Rectal: Deferred. Extremities: Atraumatic, negative for cords or calf pain. Neurovascular unremarkable. Right hand unaffected above the wrist as per history of present illness Neuro: Awake, alert, oriented. Cranial nerves II through XII unremarkable. Cerebellum unremarkable. Motor and sensory unremarkable throughout. Exam nonfocal. Diagnostics: [Right hand 2 views pre-removal Right hand 2 views post removal ] Therapeutics: [Tetanus status is up-to-date 1 g Rocephin] Wound cleansed and explored Joni wrenches removed from the hand without complication Lidoc 2.5 mL for local anesthesia palmar surface laceration/tear 2.5 cm x 1 cm L-shaped lesion closed with #3 4- 0 Prolene sutures interrupted Lesion on dorsum of hand is packed with quarter inch iodoform Wound dressing applied Follow-up with Dr. Baron in 48 hours for wound recheck and further wound management ER referral provided [place] [id number] by mouth twice a day #20 no refill Impression: Foreign body right hand [Penetrating wound right hand] Definitive disposition and diagnosis as appropriate pending reevaluation and review of above. right wrist Pain Score (Numeric/FACES): 8 - Related Data Allergies Allergy/AdvReac Type Severity Reaction Status Date / Time No Known Allergies Allergy Verified 06/11/17 01:50 Home Meds: Home Meds Esomeprazole [NexIUM] 40 mg PO DAILY 06/10/17 [History] LORazepam [Lorazepam] 2 mg PO DAILY 06/10/17 [History] QUEtiapine Fumarate [Seroquel] 25 mg PO BEDTIME 06/10/17 [History] traZODone 50 mg PO BEDTIME 06/10/17 [History] Past Medical History - Past Health History Medical/Surgical History: Denies Medical/Surgical History HEENT History: Other HEENT History: uses reading glasses Cardiovascular History: Reports: Hypertension Other Cardiovascular History: quit taking meds, states has cut down on caffine Respiratory History: Reports: None Gastrointestinal History: Reports: Chronic Diarrhea, GERD, Helicobacter Pylori, PUD Genitourinary History: Reports: Other (See Below) (h/o benign cyst left kidney) Musculoskeletal History: Reports: Arthritis, Back Pain, Chronic, Fracture Other Musculoskeletal History: knee and shoulder pain, hx of fx wrist, tailbone and ribs Neurological History: Reports: Concussion Psychiatric History: Reports: Anxiety, Depression Endocrine/Metabolic History: Reports: Obesity/BMI 30+ Hematologic History: Reports: None Immunologic History: Reports: None Oncologic (Cancer) History: Reports: None Dermatologic History: Reports: None - Infectious Disease History Infectious Disease History: Reports: None - Past Surgical History Head Surgeries/Procedures: Reports: None HEENT Surgical History: Reports: None GI Surgical History: Reports: Hernia, Inguinal Neurological Surgical History: Reports: C-Spine Other Neurological Surgeries/Procedures: neck surgery, C-1, C-2 Musculoskeletal Surgical History: Reports: Arthroscopic Knee (right), Other ( See Below) Other Musculoskeletal Surgeries/Procedures:: surgery on rt elbow for bone spurs Social & Family History - Family History Family Medical History: Noncontributory - Tobacco Use Smoking Status *Q: Current Every Day Smoker (quit 3 years ago) Years of Tobacco use: 30 Packs/Tins Daily: 1 Month/Year Tobacco Last Used: quit smoking 2 1/2 yrs ago Second Hand Smoke Exposure: No - Caffeine Use Caffeine Use: Reports: Coffee - Alcohol Use Days Per Week of Alcohol Use: 7 Number of Drinks Per Day: 1 Total Drinks Per Week: 7 - Recreational Drug Use Recreational Drug Use: Yes Drug Use in Last 12 Months: No - Living Situation & Occupation Living situation: Reports: Single Occupation: Disabled ED ROS GENERAL - Review of Systems Review Of Systems: ROS reveals no pertinent complaints other than HPI. ED EXAM, GENERAL - Physical Exam Exam: See Below Course - Vital Signs Last Recorded V/S: Last Vital Signs Temp 99 F 06/11/17 01:30 Pulse 125 H 06/11/17 01:30 Resp 18 06/11/17 01:30 BP 154/94 H 06/11/17 01:30 Pulse Ox 98 06/11/17 01:30 - Orders/Labs/Meds Orders: Active Orders 24 hr Category Date Time Status Hand 2V Rt [CR] Stat Exams 06/11/17 01:32 Taken Hand 2V Rt [CR] Stat Exams 06/11/17 02:12 Taken Meds: Medications Discontinued Medications Generic Name Dose Route Start Last Admin Trade Name Freq PRN Reason Stop Dose Admin Bacitracin 1 dose 06/11/17 03:02 06/11/17 03:05 Bacitracin Oint 1 Gm TOP 06/11/17 03:03 1 dose ONETIME ONE Administration Ceftriaxone Sodium 1,000 mg/ 4 mls @ 4 mls/sec 06/11/17 01:31 06/11/17 02:03 Lidocaine HCl IM 06/11/17 01:32 4 mls/sec ONETIME ONE Administration Lidocaine HCl 20 ml 06/11/17 02:00 06/11/17 02:05 Xylocaine 1% INJECT 06/11/17 02:01 10 ml ONETIME ONE Administration Departure - Departure Time of Disposition: 03:18 Disposition: Home, Self-Care 01 Condition: Good Clinical Impression: Puncture wound, Foreign body - Discharge Information Referrals: oRnnie Ndiaye MD [Primary Care Provider] - Additional Instructions: Medication as prescribed Return if symptoms persist or worsen or fever nausea vomiting chills sweats despite antibiotics or if redness warmth or pus drainage should this develop Follow-up with hand specialist within 48 hours for recheck and further wound management, ER referral provided [facility] [address], [address] [place] [address] The following information is given to patients seen in the emergency department who are being discharged to home. This information is to outline your options for follow-up care. We provide all patients seen in our emergency department with a follow-up referral. The need for follow-up, as well as the timing and circumstances, are variable depending upon the specifics of your emergency department visit. If you don't have a primary care physician on staff, we will provide you with a referral. We always advise you to contact your personal physician following an emergency department visit to inform them of the circumstance of the visit and for follow-up with them and/or the need for any referrals to a consulting specialist. The emergency department will also refer you to a specialist when appropriate. This referral assures that you have the opportunity for follow-up care with a specialist. All of these measure are taken in an effort to provide you with optimal care, which includes your follow-up. Under all circumstances we always encourage you to contact your private physician who remains a resource for coordinating your care. When calling for follow-up care, please make the office aware that this follow-up is from your recent emergency room visit. If for any reason you are refused follow-up, please contact the [facility] emergency department at and asked to speak to the emergency department charge nurse. - My Orders Last 24 Hours: My Active Orders 06/11/17 01:32 Hand 2V Rt [CR] Stat 06/11/17 02:12 Hand 2V Rt [CR] Stat - Assessment/Plan Last 24 Hours: My Active Orders 06/11/17 01:32 Hand 2V Rt [CR] Stat 06/11/17 02:12 Hand 2V Rt [CR] Stat
[2017-06-11] MEDS ORDERED: Lidocaine 1% 20 ML MDV INJECT ONE (02:00)
[2017-06-11] MEDS ORDERED: Bacitracin Oint 1 GM U/D Packet TOP ONE (03:02)
[2017-06-11] MEDS ORDERED: Acetaminophen/HYDROcodone 325-5 MG Tab PO ONE (03:32)
[2017-06-11 04:00] VITALS: BP 160/87
--- NOTE | 2017-06-11 12:36 | CR ---
EXAM DATE: 06/11/17 PATIENT'S AGE: 57 Patient: LUZ MARIA BOBOEDTerrie Facility: [place], [place] Site . Site : 1960 Study: XRay Extremity Right HAND [id number]/2/2018 2:05:37 AM Ordering Physician: Choco Granado Final Report: Indication: Accident with a wrench Technique: Two views right hand Comparison: None Findings/impression: An L-shaped metallic foreign body measuring 5 mm in thickness and approximately 9 cm in length is seen in the soft tissues of the right palm. There is a small osseous density adjacent to the 3rd metacarpal head. This may represent a fracture of unknown age. Remainder of the osseous structures are intact. Dictated by Angella Hughes MD @ Jun 11 2017 2:18AM (Electronic Signature) Report Signed by Proxy. MAURICIO
--- NOTE | 2017-06-11 12:37 | CR ---
EXAM DATE: 06/11/17 PATIENT'S AGE: 57 Patient: LUZ MARIA WANG Facility: [place], [place] Site . Site : 1960 Study: XRay Extremity Right [id number]/2/2018 2:33:44 AM Ordering Physician: Choco Granado Final Report: Indication: Removal of foreign body Technique: Two views right hand Comparison: Same date at 1:51 a.m. Findings/impression: Interval removal of metallic foreign body. Small osseous density adjacent to the right 3rd metacarpal head is unchanged and may represent a fracture of unknown age. No additional osseous abnormality identified. Small amount of soft tissue gas noted. Dictated by Angella Hughes MD @ Jun 11 2017 2:36AM (Electronic Signature) Report Signed by Proxy. MAURICIO
== END 2017-06-11 03:43 | disposition home or self-care (01) ==
LOC: MW.ED 01:25
DX: S61.441A Puncture wound with foreign body of right hand, initial encounter (principal); F41.9 Anxiety disorder, unspecified; F32.9 Major depressive disorder, single episode, unspecified; E66.9 Obesity, unspecified; Z87.891 Personal history of nicotine dependence; W26.8XXA Contact with other sharp object(s), not elsewhere classified, initial encounter; Z79.899 Other long term (current) drug therapy
CPT/HCPCS: 12002; 73120; 96372; 99283; A9270; J0696; J2001

== ENCOUNTER 2020-01-17 09:42 | Day surgery (SDC) | payer MEDICAID ==
[~2020-01-17 09:42] MED LIST changes: +Glycopyrrolate 0.2 MG/ML SDV ONE; +Midazolam 1 MG/ML 2 ML SDV ONE; -fentaNYL 100 MCG/2 ML SDV ONE
--- NOTE | 2020-01-17 10:26 | PCM.PREANE ---
Preanesthetic Assessment - Anesthesia/Transfusion/Family Hx Anesthesia History: Prior Anesthesia Without Reaction Other Type of Anesthesia Reaction Comment: wakes up combative Family History of Anesthesia Reaction: No Transfusion History: No Prior Transfusion(s) Intubation History: Unknown - Review of Systems General: No Symptoms Pulmonary: No Symptoms Cardiovascular: No Symptoms Neurological: No Symptoms Other: Reports: None - Physical Assessment NPO Status Date: 01/17/20 (beptobismol at 0300 today) Height: 6 ft Weight: 111.584 kg ASA Class: 3 Mental Status: Alert & Oriented x3 Airway Class: Mallampati = 2 Dentition: Reports: Normal Dentition ROM/Head Extension: Full Lungs: Clear to Auscultation, Normal Respiratory Effort Cardiovascular: Regular Rate, Regular Rhythm - Allergies Allergies/Adverse Reactions: Allergies Allergy/AdvReac Type Severity Reaction Status Date / Time No Known Allergies Allergy Verified 01/13/20 09:38 - Blood Blood Available: No - Anesthesia Plan Pre-Op Medication Ordered: None - Acknowledgements Anesthesia Type Planned: General Anesthesia (tiva) Pt an Appropriate Candidate for the Planned Anesthesia: Yes Alternatives and Risks of Anesthesia Discussed w Pt/Guardian: Yes Pt/Guardian Understands and Agrees with Anesthesia Plan: Yes Additional Comments: PMH: active alcohol use disorder, chronic bronchitis, former smoker, GERD, preDM, PLAN: tiva PreAnesthesia Questionnaire - Past Health History Medical/Surgical History: Denies Medical/Surgical History HEENT History: Reports: Other (See Below) Other HEENT History: uses reading glasses Cardiovascular History: Reports: Hypertension Respiratory History: Reports: None Gastrointestinal History: Reports: GERD, Helicobacter Pylori, PUD Other Gastrointestinal History: hx of "bleeding ulcers", elevated liver enzymes Genitourinary History: Reports: None Musculoskeletal History: Reports: Arthritis, Back Pain, Chronic, Fracture Other Musculoskeletal History: knee and shoulder pain, hx of fx wrist, tailbone and ribs Neurological History: Reports: None Psychiatric History: Reports: Anxiety, Bipolar, Depression, Panic Attack, Schizophrenia Endocrine/Metabolic History: Reports: Obesity/BMI 30+ Hematologic History: Reports: None Immunologic History: Reports: None Oncologic (Cancer) History: Reports: None Dermatologic History: Reports: None - Infectious Disease History Infectious Disease History: Reports: Chicken Pox - Past Surgical History Head Surgeries/Procedures: Reports: None HEENT Surgical History: Reports: None Cardiovascular Surgical History: Reports: None Respiratory Surgical History: Reports: None GI Surgical History: Reports: Colonoscopy, EGD, Hernia, Inguinal Male Surgical History: Reports: None Endocrine Surgical History: Reports: None Neurological Surgical History: Reports: C-Spine Other Neurological Surgeries/Procedures: neck surgery, C-1, C-2 Musculoskeletal Surgical History: Reports: Arthroscopic Knee, Other (See Below) Other Musculoskeletal Surgeries/Procedures:: surgery on rt elbow for bone spurs Oncologic Surgical History: Reports: None Dermatological Surgical History: Reports: None - SUBSTANCE USE Tobacco Use Status *Q: Former Tobacco User Tobacco Use Within Last Twelve Months: Smokeless Tobacco - HOME MEDS Home Medications: Home Meds Esomeprazole [NexIUM] 40 mg PO DAILY 06/10/17 [History] traZODone 100 mg PO BEDTIME 06/10/17 [History] Lisinopril 10 mg PO DAILY 11/23/17 [History] Sertraline HCl 50 mg PO DAILY 01/18/18 [History] Baclofen 10 mg PO TID PRN 01/13/20 [History] Diclofenac Sodium 75 mg PO BID PRN 01/13/20 [History] Folic Acid 1 mg PO DAILY 01/13/20 [History] Furosemide 10 mg PO ASDIRECTED PRN 01/13/20 [History] LORazepam [Ativan] 2 mg PO BEDTIME PRN 01/13/20 [History] LORazepam [Lorazepam] 0.5 tab PO DAILY 01/13/20 [History] Melatonin 20 mg PO BEDTIME 01/13/20 [History] Potassium Chloride 20 meq PO DAILY 01/13/20 [History] diphenhydrAMINE HCL [Sleep Aid] 1 tab PO BEDTIME 01/13/20 [History] - CURRENT (IN HOUSE) MEDS Current Meds: Current Medications Lactated Ringer's (Ringers, Lactated) 1,000 mls @ 125 mls/hr IV ASDIRECTED ANMOL Discontinued Medications Glycopyrrolate (Robinul) Confirm Administered Dose 0.2 mg .ROUTE .STK-MED ONE Stop: 01/17/20 07:30 Lidocaine (Xylocaine-Mpf 2%) Confirm Administered Dose 5 ml .ROUTE .STK-MED ONE Stop: 01/17/20 07:30 Midazolam HCl (Versed 1 Mg/Ml) Confirm Administered Dose 2 mg .ROUTE .STK-MED ONE Stop: 01/17/20 07:30 Propofol (Diprivan 20 Ml) Confirm Administered Dose 200 mg .ROUTE .STK-MED ONE Stop: 01/17/20 07:30
[2020-01-17] MEDS ORDERED: Propofol 200 MG/20 ML SDV ONE (11:00)
--- NOTE | 2020-01-17 11:39 | PCM.OPNOTE ---
- General Post-Op/Procedure Note Date of Surgery/Procedure: 01/17/20 Operative Procedure(s): Esophagogastroduodenoscopy with gastric and esophageal biopsies Pre Op Diagnosis: Progressive heartburn with epigastric pain. Post-Op Diagnosis: Moderate acute and chronic gastritis. Distal esophagitis. Anesthesia Technique: MAC (ASA II) Primary Surgeon: Cam Chaidez Condition: Good Free Text/Narrative:: DICTATION [id number] CPT CODE 60627
[2020-01-17] MEDS ORDERED: Lactated Ringers 1,000 ML IV SCH (11:45)
[2020-01-17 12:10] VITALS: BP 155/108; PULSE 86
[2020-01-17] MEDS ORDERED: Albuterol/Ipratropium 3.0-0.5 MG/3 ML Neb Soln NEB ONE (12:11)
--- NOTE | 2020-01-17 12:26 | PCM.POSTAN ---
POST ANESTHESIA ASSESSMENT - MENTAL STATUS Mental Status: Alert, Oriented - VITAL SIGNS Vital Signs: Last Vital Signs Temp 98.4 F 01/17/20 10:10 Pulse 86 01/17/20 12:03 Resp 16 01/17/20 12:03 BP 155/108 H 01/17/20 12:03 Pulse Ox 96 01/17/20 12:03 - RESPIRATORY Respiratory Status: Respiratory Rate WNL, Airway Patent, O2 Saturation Stable - CARDIOVASCULAR CV Status: Pulse Rate WNL, Blood Pressure Stable - GASTROINTESTINAL GI Status: No Symptoms - POST OP HYDRATION Hydration Status: Adequate & Stable
--- NOTE | 2020-01-17 14:26 | CR ---
INDICATION: Preoperative assessment COMPARISON: April 15, 2019 TECHNIQUE: Two views of the chest were acquired FINDINGS: TUBES AND LINES: None. HEART AND MEDIASTINUM: The heart size is normal. The mediastinal contour appears normal for patient age. LUNGS AND PLEURAL SPACES: The lungs appear normal.The pleural spaces are unremarkable. OSSEOUS STRUCTURES: Age-appropriate appearance. No acute focal finding. IMPRESSION: No evidence of active pulmonary disease. Dictated by Mendel Oneil MD @ Jan 17 2020 2:23PM Signed by Dr. Mendel Oneil @ Jan 17 2020 2:24PM
--- NOTE | 2020-01-17 14:31 | OR ---
SURGEON: Cam Chaidez M.D. DATE OF PROCEDURE: 01/17/2020 OPERATION PERFORMED: Esophagogastroduodenoscopy with gastric and esophageal biopsies. PRIMARY SURGEON: Cam Chaidez MD ANESTHESIA: MAC. ASA CLASSIFICATION: II. PREOPERATIVE DIAGNOSES: Progressive heartburn with epigastric pain. POSTOPERATIVE DIAGNOSES: 1. Moderate acute on chronic gastritis. 2. Distal esophagitis. DESCRIPTION OF PROCEDURE: The patient was taken to the endoscopy room and positioned on the endoscopy table in the supine position. Time-out was called for appropriate identification of the patient and procedure. Monitored anesthesia care was provided. The bite block was placed between the patient's teeth. The gastroscope was inserted through the bite block and advanced without difficulty through the esophagus and stomach into the duodenum where examination was carried out in a retrograde fashion. The duodenum showed no acute inflammatory changes or ulcerations. The stomach did show [id number] acute on chronic gastritis. Antral biopsies were obtained to look for the presence of Helicobacter pylori. The gastroscope was then retroflexed to visualize the proximal stomach. No lesions were noted proximally. No significant hiatal hernia was noted. The gastroscope was then straightened and slowly withdrawn carefully visualizing the greater and lesser curvatures. Stomach was aspirated as the scope was withdrawn. The GE junction was well defined with the Z-line at approximately 42 cm. There were some mild distal esophageal inflammatory changes, and biopsies of this area were obtained. No acute ulcerations were noted in the esophagus itself. The esophagus demonstrated good contractility. No mid or proximal lesions were identified. The vocal cords were visualized as the scope was withdrawn and noted to move symmetrically. The gastroscope was then removed with the patient having tolerated the procedure well. He was taken to recovery room in stable condition. KEELY / SAM /[id number]
== END 2020-01-17 14:35 | disposition home or self-care (01) ==
LOC: MW.SDS 09:42
PROVIDERS: ATTEND Surgery
DX: K29.50 Unspecified chronic gastritis without bleeding (principal); K21.00 Gastro-esophageal reflux disease with esophagitis, without bleeding; I10 Essential (primary) hypertension; F41.9 Anxiety disorder, unspecified; E66.9 Obesity, unspecified; Z79.899 Other long term (current) drug therapy; Z98.890 Other specified postprocedural states; Z87.891 Personal history of nicotine dependence; Z72.89 Other problems related to lifestyle; Z68.33 Body mass index [BMI] 33.0-33.9, adult
CPT/HCPCS: 43239; 71046; 88305; 88312; J2001; J2250; J2704; J3490; J7120; 00731; J7620-GY

== ENCOUNTER 2020-08-29 03:42 | Emergency (ER) | payer MEDICAID ==
[2020-08-29] MEDS ORDERED: Diphtheria,Pertussis(Acell),Tetanus Vaccine 0.5 ML Syringe IM ONE (03:54)
[2020-08-29] MEDS ORDERED: Cephalexin 500 MG Cap PO ONE (04:04)
--- NOTE | 2020-08-29 04:05 | EDM.PDOC ---
ED HPI GENERAL MEDICAL PROBLEM - General Stated Complaint: CUT ON RIGHT HAND Time Seen by Provider: 08/29/20 03:43 - History of Present Illness INITIAL COMMENTS - FREE TEXT/NARRATIVE: HISTORY AND PHYSICAL: History of present illness: This is a 60-year-old gentleman with a history of anemia of hypertension who presents ER today secondary to a laceration to his dominant right hand over the base of the 5th digit over the volar aspect. Patient reports that this occurred at approximately 11 PM when he cut it across the plastic of his garbage can. Patient denies any neurological deficits. Patient reports he came to the ED secondary to persistent bleeding. Review of systems: As per history of present illness and below otherwise all systems reviewed and negative. Past medical history: As per history of present illness and as reviewed below otherwise noncontributory. Surgical history: As per history of present illness and as reviewed below otherwise noncontributory. Social history: No reported history of drug abuse. Family history: As per history of present illness and as reviewed below otherwise noncontributory. Physical exam: This patient was seen and evaluated during the 2019 SARS-CoV-2 novel coronavirus pandemic period. Community viral transmission is ongoing at time of this encounter and the emergency department is operating under pandemic response procedures. Constitutional: Patient is oriented to person, place, and time. Appears well- developed and well-nourished. No distress. HEENT: Moist mucous membranes Head: Normocephalic and atraumatic Eyes: Right eye exhibits no discharge. Left eye exhibits no discharge. No scleral icterus Neck: Normal range of motion. No tracheal deviation present. Cardiovascular: Normal rate and regular rhythm. Pulmonary: Effort normal, no respiratory distress. Abdominal: No distention Musculoskeletal: Normal range of motion Neurologic: Alert and oriented to person, place and time. Skin: [place], warm and dry. Psychiatric: Normal mood and affect. Behavior is normal. Judgment and thought content normal. Nursing note and vital signs have been reviewed Patient's ER physical exam is significant for a irregularly shaped 4 cm laceration to the base of his 5th digit on the right hand over the volar aspect. This is a stellate wound. Wound was explored to the base with no foreign body identified. Patient is neurovascularly intact. Diagnostics: [] Therapeutics: Tdap 0.5 IM Sutured in ED Keflex 100 p.o. Assessment and plan: 60-year-old gentleman who presents ER today secondary to a laceration to his right hand that will require suturing. Wound has been irrigated extensively in the ED by the RN. Patient was anesthetized with lidocaine and sutured with 4-0 Ethilon times 6 sutures. Please see suture note. Patient will need a wound check in 2 days and suture removal in 10 days. Patient will get started on Keflex 500 mg 3 times a day for 7 days. Reassessment at the time of disposition demonstrates that the patient is in no acute distress. The patient has remained stable throughout the entire ED visit and is without objective evidence for acute process requiring urgent intervention or hospitalization. The patient is stable for discharge, counseling is provided as documented above, discussed symptomatic treatment and specific conditions for return. I have spoken with the patient/caregiver and discussed todays findings, in addition to providing specific details for the plan of care. Questions are answered and there is agreement with the plan. Definitive disposition and diagnosis as appropriate pending reevaluation and review of above. - Related Data Allergies Allergy/AdvReac Type Severity Reaction Status Date / Time No Known Allergies Allergy Verified 08/29/20 03:57 Home Meds: Home Meds Esomeprazole [NexIUM] 40 mg PO DAILY 06/10/17 [History] traZODone 100 mg PO BEDTIME 06/10/17 [History] Lisinopril 10 mg PO DAILY 11/23/17 [History] Sertraline HCl 50 mg PO DAILY 01/18/18 [History] Baclofen 10 mg PO TID PRN 01/13/20 [History] Diclofenac Sodium 75 mg PO BID PRN 01/13/20 [History] Folic Acid 1 mg PO DAILY 01/13/20 [History] Furosemide 10 mg PO ASDIRECTED PRN 01/13/20 [History] LORazepam [Ativan] 2 mg PO BEDTIME PRN 01/13/20 [History] LORazepam [Lorazepam] 0.5 tab PO DAILY 01/13/20 [History] Melatonin 20 mg PO BEDTIME 01/13/20 [History] Potassium Chloride 20 meq PO DAILY 01/13/20 [History] diphenhydrAMINE HCL [Sleep Aid] 1 tab PO BEDTIME 01/13/20 [History] Sucralfate 1 gm PO QID 30 Days #120 tablet 01/17/20 [Rx] cephALEXin [Keflex] 500 mg PO Q8H #20 cap 08/29/20 [Rx] Past Medical History - Past Health History Medical/Surgical History: Denies Medical/Surgical History HEENT History: Reports: Other (See Below) Other HEENT History: uses reading glasses Cardiovascular History: Reports: Hypertension Other Cardiovascular History: quit taking meds, states has cut down on caffine Respiratory History: Reports: None Gastrointestinal History: Reports: Chronic Diarrhea, GERD, Helicobacter Pylori, PUD Other Gastrointestinal History: hx of "bleeding ulcers", elevated liver enzymes Genitourinary History: Reports: Other (See Below) Musculoskeletal History: Reports: Arthritis, Back Pain, Chronic, Fracture Other Musculoskeletal History: knee and shoulder pain, hx of fx wrist, tailbone and ribs Neurological History: Reports: Concussion Psychiatric History: Reports: Anxiety, Depression Endocrine/Metabolic History: Reports: Obesity/BMI 30+ Hematologic History: Reports: None Immunologic History: Reports: None Oncologic (Cancer) History: Reports: None Dermatologic History: Reports: None - Infectious Disease History Infectious Disease History: Reports: Chicken Pox - Past Surgical History Head Surgeries/Procedures: Reports: None HEENT Surgical History: Reports: None Cardiovascular Surgical History: Reports: None Respiratory Surgical History: Reports: None GI Surgical History: Reports: Hernia, Inguinal Male Surgical History: Reports: None Endocrine Surgical History: Reports: None Neurological Surgical History: Reports: C-Spine Other Neurological Surgeries/Procedures: neck surgery, C-1, C-2 Musculoskeletal Surgical History: Reports: Arthroscopic Knee, Other (See Below) Other Musculoskeletal Surgeries/Procedures:: surgery on rt elbow for bone spurs Oncologic Surgical History: Reports: None Dermatological Surgical History: Reports: None Social & Family History - Family History Family Medical History: No Pertinent Family History - Tobacco Use Tobacco Use Status *Q: Never Tobacco User - Caffeine Use Caffeine Use: Reports: None - Recreational Drug Use Recreational Drug Use: No - Living Situation & Occupation Living situation: Reports: Single Occupation: Disabled ED ROS GENERAL - Review of Systems Review Of Systems: See Below ED EXAM, GENERAL - Physical Exam Exam: See Below ED GENERAL MEDICAL PROCEDURES - Laceration/Wound Repair Right Hand Lac/wound length in cm: 4 Appearance: Subcutaneous, Stellate, Irregular, Mildly Contaminated Distal NVT: Neuro & Vascular Intact, No Tendon Injury Anesthetic Type: Local Local Anesthesia - Lidocaine (Xylocaine): 1% Plain Local Anesthetic Volume: 3cc Skin Prep: Chlorhexidine (Hibiciens), Saline Saline irrigation (cc's): 1,000 Exploration/Debridement/Repair: Wound Explored, In a Bloodless Field, Explored to Base, No Foreign Material Found, Wound Margins Revised Closed with: Sutures Suture Size: 4-0 # of Sutures: 6 Suture Type: Nylon, Interrupted, Simple Course - Orders/Labs/Meds Orders: Active Orders 24 hr Category Date Time Status Vaccines to be Administered [RC] PER UNIT ROUTINE Care 08/29/20 03:54 Active Meds: Medications Discontinued Medications Generic Name Dose Route Start Last Admin Trade Name Freq PRN Reason Stop Dose Admin Diphtheria/Tetanus/Acell Pertussis 0.5 ml 08/29/20 03:54 Diphtheria,Pertussis(Acell),Tetanus Vaccine 0.5 Ml Syringe IM 08/29/20 03:55 .ONCE ONE Lidocaine HCl Confirm 08/29/20 03:45 08/29/20 03:49 Lidocaine 1% 5 Ml Sdv Administered 08/29/20 03:46 Not Given Dose 5 ml .ROUTE .STK-MED ONE Lidocaine HCl 5 ml 08/29/20 03:48 08/29/20 03:50 Lidocaine 1% 5 Ml Sdv INJECT 08/29/20 03:49 5 ml ONETIME ONE Administration Departure - Departure Time of Disposition: 04:03 Disposition: Home, Self-Care 01 Condition: Good Clinical Impression: Laceration of right hand Qualifiers: Encounter type: initial encounter Foreign body presence: without foreign body Qualified Code(s): S61.411A - Laceration without foreign body of right hand, initial encounter - Discharge Information Instructions: Laceration Care, Adult Additional Instructions: You were seen and evaluated in the ER today secondary to a laceration to your right hand. This was sutured in the ED. You will need a wound check in 2 days by your primary care doctor for any signs of infection. Your sutures will need to be removed in 7 to 10 days. You will be placed on Keflex 500 mg 3 times a day for 7 days. Your tetanus shots have been updated here in the ED today. The following information is given to patients seen in the emergency department who are being discharged to home. This information is to outline your options for follow-up care. We provide all patients seen in our emergency department with a follow-up referral. The need for follow-up, as well as the timing and circumstances, are variable depending upon the specifics of your emergency department visit. If you don't have a primary care physician on staff, we will provide you with a referral. We always advise you to contact your personal physician following an emergency department visit to inform them of the circumstance of the visit and for follow-up with them and/or the need for any referrals to a consulting specialist. The emergency department will also refer you to a specialist when appropriate. This referral assures that you have the opportunity for follow-up care with a specialist. All of these measure are taken in an effort to provide you with optimal care, which includes your follow-up. Under all circumstances we always encourage you to contact your private hysician who remains a resource for coordinating your care. When calling for follow-up care, please make the office aware that this follow-up is from your recent emergency room visit. If for any reason you are refused follow-up, please contact the [facility] Emergency Department at and asked to speak to the emergency department charge nurse. [facility] - Primary Care [address] [place] [address] [address] Sepsis Event Note (ED) - Evaluation Sepsis Screening Result: No Definite Risk - My Orders Last 24 Hours: My Active Orders 08/29/20 03:54 Vaccines to be Administered [RC] PER UNIT ROUTINE - Assessment/Plan Last 24 Hours: My Active Orders 08/29/20 03:54 Vaccines to be Administered [RC] PER UNIT ROUTINE
[2020-08-29 04:15] VITALS: BP 115/75; PULSE 98
== END 2020-08-29 04:15 | disposition home or self-care (01) ==
LOC: MW.ED 03:42
DX: S61.411A Laceration without foreign body of right hand, initial encounter (principal); Z23 Encounter for immunization; W26.8XXA Contact with other sharp object(s), not elsewhere classified, initial encounter
CPT/HCPCS: 12002; 90471; 90715; 99282; A9270

== ENCOUNTER 2021-02-10 13:52 | Emergency (ER) | payer BC, MEDICAID ==
--- NOTE | 2021-02-10 14:18 | EDM.PDOC ---
ED HPI GENERAL MEDICAL PROBLEM - General Chief Complaint: Respiratory Problem Stated Complaint: SOB Time Seen by Provider: 02/10/21 14:16 - History of Present Illness INITIAL COMMENTS - FREE TEXT/NARRATIVE: History of present illness: [] The patient has 6 months of heartburn. It is worse if he eats before he goes to bed. Today it is unbearable with pain in center of his chest is burning. He is on PPI and H2 emiliano ready. Patient does not smoke. He is not diabetic. He does take medicine for hypertension. Oral antacids help but briefly Review of systems: As per history of present illness and below otherwise all systems reviewed and negative. Past medical history: As per history of present illness and as reviewed below otherwise noncontributory. Surgical history: As per history of present illness and as reviewed below otherwise noncontributory. Social history: No reported history of drug or alcohol abuse. Family history: As per history of present illness and as reviewed below otherwise noncontributor y. Physical exam: Constitutional - well developed, well-nourished and in no acute distress HEENT - normocephalic, no evidence of trauma - external nose and mouth normal - no mass in neck and no JVD - mucosae moist EYES - full EOM, PERRL, no icterus - no evidence of inflammation, injection, or drainage Respiratory - no respiratory distress, equal bilateral expansion, lungs clear to auscultation and no abnormal lung sounds Cardiovascular - Regular Rhythm with S1 and S2 appreciated and no murmur, gallop or rub. GI -tender epigastrium-abdomen soft without distension or organomegaly - normal bowel sounds - no guard or rebound Musculoskeletal no gross deformity of long bones or joints - no tenderness, swelling or edema Neurologic - Alert and oriented times four - CN II-XII grossly intact - motor sensory and coordination symmetrically normal Psychiatric - appropriate mood and affect with normal thought content Hematologic - No petechiae or purpura - mucosa appropriate color and sclera not pale - normal nail bed color and refill Integument - no rash or evidence of trauma - normal turgor Diagnostics: [] Therapeutics: [] Impression: [] Plan: [] Definitive disposition and diagnosis as appropriate pending reevaluation and review of above. - Related Data Allergies Allergy/AdvReac Type Severity Reaction Status Date / Time No Known Allergies Allergy Verified 01/01/22 14:06 Home Meds: Home Meds Esomeprazole [NexIUM] 40 mg PO DAILY 06/10/17 [History] traZODone 100 mg PO BEDTIME 06/10/17 [History] Lisinopril 10 mg PO DAILY 11/23/17 [History] Sertraline HCl 50 mg PO DAILY 01/18/18 [History] Baclofen 10 mg PO TID PRN 01/13/20 [History] Diclofenac Sodium 75 mg PO BID PRN 01/13/20 [History] Folic Acid 1 mg PO DAILY 01/13/20 [History] Furosemide 10 mg PO ASDIRECTED PRN 01/13/20 [History] LORazepam [Ativan] 2 mg PO BEDTIME PRN 01/13/20 [History] LORazepam [Lorazepam] 0.5 tab PO DAILY 01/13/20 [History] Melatonin 20 mg PO BEDTIME 01/13/20 [History] Potassium Chloride 20 meq PO DAILY 01/13/20 [History] diphenhydrAMINE HCL [Sleep Aid] 1 tab PO BEDTIME 01/13/20 [History] Sucralfate 1 gm PO QID 30 Days #120 tablet 01/17/20 [Rx] cephALEXin [Keflex] 500 mg PO Q8H #20 cap 08/29/20 [Rx] Past Medical History - Past Health History Medical/Surgical History: Denies Medical/Surgical History HEENT History: Reports: Other (See Below) Other HEENT History: uses reading glasses Cardiovascular History: Reports: Hypertension Other Cardiovascular History: quit taking meds, states has cut down on caffine Respiratory History: Reports: None Gastrointestinal History: Reports: Chronic Diarrhea, GERD, Helicobacter Pylori, PUD Other Gastrointestinal History: hx of "bleeding ulcers", elevated liver enzymes Genitourinary History: Reports: Other (See Below) Musculoskeletal History: Reports: Arthritis, Back Pain, Chronic, Fracture Other Musculoskeletal History: knee and shoulder pain, hx of fx wrist, tailbone and ribs Neurological History: Reports: Concussion Psychiatric History: Reports: Anxiety, Depression Endocrine/Metabolic History: Reports: Obesity/BMI 30+ Hematologic History: Reports: None Immunologic History: Reports: None Oncologic (Cancer) History: Reports: None Dermatologic History: Reports: None - Infectious Disease History Infectious Disease History: Reports: Chicken Pox - Past Surgical History Head Surgeries/Procedures: Reports: None HEENT Surgical History: Reports: None Cardiovascular Surgical History: Reports: None Respiratory Surgical History: Reports: None GI Surgical History: Reports: Hernia, Inguinal Male Surgical History: Reports: None Endocrine Surgical History: Reports: None Neurological Surgical History: Reports: C-Spine Other Neurological Surgeries/Procedures: neck surgery, C-1, C-2 Musculoskeletal Surgical History: Reports: Arthroscopic Knee, Other (See Below) Other Musculoskeletal Surgeries/Procedures:: surgery on rt elbow for bone spurs Oncologic Surgical History: Reports: None Dermatological Surgical History: Reports: None Social & Family History - Family History Family Medical History: No Pertinent Family History - Caffeine Use Caffeine Use: Reports: None - Living Situation & Occupation Living situation: Reports: Single Occupation: Disabled ED ROS GENERAL - Review of Systems Review Of Systems: Comprehensive ROS is negative, except as noted in HPI. ED EXAM, GENERAL - Physical Exam Exam: See Below Free Text/Narrative:: My physical exam is in the HPI #1 Interpretation EKG Interpretation Comments: EKG done 02/10/2021 at 1:54 PM sinus tachycardia 114 rate MI 134 QT duration 496 Brent 44 there is a late transition R wave in the precordium and a Q wave in V2. Compared to 12/14/2016 there is not really a great deal of difference. Impression no obvious acute ischemia Course - Vital Signs Last Recorded V/S: Last Vital Signs Temp 36.4 C 02/10/21 14:07 Pulse 97 02/10/21 16:27 Resp 18 02/10/21 16:27 BP 164/104 H 02/10/21 16:27 Pulse Ox 96 02/10/21 16:27 - Orders/Labs/Meds Orders: Active Orders 24 hr Category Date Time Status Potassium Chloride Riders [KCL in Water 40 MEQ/100 ML] Med 02/10/21 15:48 Active 40 meq Premix Bag 1 bag IV ONETIME Medication Orders Potassium Chloride 40 meq/ (Premix) 100 mls @ 25 mls/hr IV ONETIME ONE Stop: 02/10/21 19:47 Last Admin: 02/10/21 16:20 Dose: 25 mls/hr Documented by: NATALYA Labs: Laboratory Tests 02/10/21 02/10/21 02/10/21 Range/Units 14:05 14:13 14:13 WBC 7.89 (4.0-11.0) K/uL RBC 4.70 (4.50-5.90) M/uL Hgb 13.5 (13.0-17.0) g/dL Hct 42.2 (38.0-50.0) % MCV 89.8 (80.0-98.0) fL MCH 28.7 (27.0-32.0) pg MCHC 32.0 (31.0-37.0) g/dL RDW Std Deviation 56.5 (28.0-62.0) fl RDW Coeff of Mani 17 H (11.0-15.0) % Plt Count 276 (150-400) K/uL MPV 10.90 (7.40-12.00) fL Neut % (Auto) 57.6 (48.0-80.0) % Lymph % (Auto) 35.4 (16.0-40.0) % Jack % (Auto) 5.3 (0.0-15.0) % Eos % (Auto) 1.1 (0.0-7.0) % Baso % (Auto) 0.6 (0.0-1.5) % Neut # (Auto) 4.5 (1.4-5.7) K/uL Lymph # (Auto) 2.8 H (0.6-2.4) K/uL Jack # (Auto) 0.4 (0.0-0.8) K/uL Eos # (Auto) 0.1 (0.0-0.7) K/uL Baso # (Auto) 0.1 (0.0-0.1) K/uL Nucleated RBC % 0.0 /100WBC Nucleated RBCs # 0 K/uL Sodium 145 (136-148) mmol/L Potassium 2.5 L (3.5-5.1) mmol/L Chloride 100 (98-107) mmol/L Carbon Dioxide 35.2 H (21.0-32.0) mmol/L BUN 9 (7.0-18.0) mg/dL Creatinine 1.1 (0.8-1.3) mg/dL Est Cr Clr Drug Dosing 80.34 mL/min Estimated GFR (MDRD) > 60.0 ml/min Glucose 180 H (74-106) mg/dL Calcium 9.3 (8.5-10.1) mg/dL Total Bilirubin 0.3 (0.2-1.0) mg/dL AST 56 H (15-37) IU/L ALT 29 (14-63) IU/L Alkaline Phosphatase 189 H (46-116) U/L Troponin I 0.156 H* (0.000-0.056) ng/mL B-Natriuretic Peptide (<100) PG/ML Total Protein 6.8 (6.4-8.2) g/dL Albumin 2.9 L (3.4-5.0) g/dL Globulin 3.9 (2.6-4.0) g/dL Albumin/Globulin Ratio 0.7 L (0.9-1.6) Influenza Type A RNA NEGATIVE (NEGATIVE) Influenza Type B RNA NEGATIVE (NEGATIVE) SARS-CoV-2 RNA (YOHAN) NEGATIVE (NEGATIVE) 02/10/21 02/10/21 Range/Units 14:13 15:08 WBC (4.0-11.0) K/uL RBC (4.50-5.90) M/uL Hgb (13.0-17.0) g/dL Hct (38.0-50.0) % MCV (80.0-98.0) fL MCH (27.0-32.0) pg MCHC (31.0-37.0) g/dL RDW Std Deviation (28.0-62.0) fl RDW Coeff of Mani (11.0-15.0) % Plt Count (150-400) K/uL MPV (7.40-12.00) fL Neut % (Auto) (48.0-80.0) % Lymph % (Auto) (16.0-40.0) % Jack % (Auto) (0.0-15.0) % Eos % (Auto) (0.0-7.0) % Baso % (Auto) (0.0-1.5) % Neut # (Auto) (1.4-5.7) K/uL Lymph # (Auto) (0.6-2.4) K/uL Jack # (Auto) (0.0-0.8) K/uL Eos # (Auto) (0.0-0.7) K/uL Baso # (Auto) (0.0-0.1) K/uL Nucleated RBC % /100WBC Nucleated RBCs # K/uL Sodium (136-148) mmol/L Potassium 2.6 L (3.5-5.1) mmol/L Chloride (98-107) mmol/L Carbon Dioxide (21.0-32.0) mmol/L BUN (7.0-18.0) mg/dL Creatinine (0.8-1.3) mg/dL Est Cr Clr Drug Dosing mL/min Estimated GFR (MDRD) ml/min Glucose (74-106) mg/dL Calcium (8.5-10.1) mg/dL Total Bilirubin (0.2-1.0) mg/dL AST (15-37) IU/L ALT (14-63) IU/L Alkaline Phosphatase (46-116) U/L Troponin I (0.000-0.056) ng/mL B-Natriuretic Peptide 425 H (<100) PG/ML Total Protein (6.4-8.2) g/dL Albumin (3.4-5.0) g/dL Globulin (2.6-4.0) g/dL Albumin/Globulin Ratio (0.9-1.6) Influenza Type A RNA (NEGATIVE) Influenza Type B RNA (NEGATIVE) SARS-CoV-2 RNA (YOHAN) (NEGATIVE) Meds: Medications Generic Name Dose Route Start Last Admin Trade Name Arlette PRN Reason Stop Dose Admin Potassium Chloride 40 meq/ 100 mls @ 25 mls/hr 02/10/21 15:48 02/10/21 16:20 Premix IV 02/10/21 19:47 25 mls/hr ONETIME ONE Administration Discontinued Medications Generic Name Dose Route Start Last Admin Trade Name Arlette PRN Reason Stop Dose Admin Aspirin 324 mg 02/10/21 14:51 02/10/21 15:10 Aspirin 81 Mg Tab.Chew PO 02/10/21 14:52 324 mg ONETIME ONE Administration Clopidogrel Bisulfate 300 mg 02/10/21 15:14 02/10/21 15:41 Clopidogrel 75 Mg Tab PO 02/10/21 15:15 300 mg ONETIME ONE Administration [place]um [place]/Mag [place]/Simeth XS 0 ml 02/10/21 14:22 02/10/21 14:27 15 ml/ Metoclopramide HCl 5 PO 02/10/21 14:23 25 each mg/ Lidocaine HCl 5 ml ONETIME ONE Administration Furosemide 40 mg 02/10/21 14:50 Furosemide 40 Mg/4 Ml Vial IVPUSH 02/10/21 14:51 NOW ONE Lidocaine HCl 2 ml 02/10/21 16:00 02/10/21 16:23 Lidocaine 1% Pf 2 Ml Sdv INJECT 02/10/21 16:01 2 ml ONETIME ONE Administration Lorazepam 1 mg 02/10/21 15:54 02/10/21 16:17 Lorazepam 2 Mg/Ml Sdv IVPUSH 02/10/21 15:55 1 mg ONETIME ONE Administration Nitroglycerin 1 gm 02/10/21 14:50 02/10/21 15:11 Nitroglycerin 2% Oint 1 Gm Ud Packet TOP 02/10/21 14:51 1 gm ONETIME ONE Administration Pantoprazole Sodium 80 mg 02/10/21 14:58 02/10/21 15:11 Pantoprazole 40 Mg/10 Ml Syringe IVPUSH 02/10/21 14:59 80 mg ONETIME ONE Administration Potassium Chloride 40 meq 02/10/21 15:00 02/10/21 15:11 Potassium Chloride 10% 20 Meq/15 Ml Soln 30 Ml Ud Cup PO 02/10/21 15:01 40 meq ONETIME ONE Administration - Re-Assessments/Exams Free Text/Narrative Re-Assessment/Exam: 02/10/21 15:05 EKG did suggest the possibility of ischemia and the troponin is 0.125. Patient's x-ray shows CHF in the Covid is negative. Patient says he had a bleeding ulcer but never since he has been on the PPI and H2 emiliano. He admits noncompliance with his blood pressure medication regimen. Case discussed with Dr. Amezquita at [facility] and she accepted the patient for transfer. He is being transferred because we do not have cardiology available. Departure - Departure Time of Disposition: 16:29 Disposition: DC/Tfer to Acute Hospital 02 Condition: Good Clinical Impression: Non-STEMI (non-ST elevated myocardial infarction), CHF (congestive heart failure), Hypokalemia - Discharge Information Referrals: PCP,None [Primary Care Provider] - Forms: ED Department Discharge Sepsis Event Note (ED) - Evaluation Sepsis Screening Result: Possible Sepsis Risk - Focused Exam Vital Signs: Vital Signs Temp Pulse Resp BP Pulse Ox 02/10/21 16:27 97 18 164/104 H 96 02/10/21 14:07 36.4 C 112 H 22 H 196/106 H 94 L - My Orders Last 24 Hours: My Active Orders 02/10/21 15:48 Potassium Chloride Riders [KCL in Water 40 MEQ/100 ML] 40 meq Premix Bag 1 bag IV ONETIME - Assessment/Plan Last 24 Hours: My Active Orders 02/10/21 15:48 Potassium Chloride Riders [KCL in Water 40 MEQ/100 ML] 40 meq Premix Bag 1 bag IV ONETIME
[2021-02-10] MEDS ORDERED: Alum Hydro/Mag Hydro/Simeth XS 15 ML, Metoclopramide 5 MG, Lidocaine 2% 5 ML PO ONE ×3 (14:22)
[2021-02-10 14:46] LABS: BLOOD UREA NITROGEN,BUN 9 mg/dL (7.0-18.0); CARBON DIOXIDE,CO2 35.2 mmol/L (21.0-32.0); CHLORIDE,CL 100 mmol/L (98-107); GLUCOSE RANDOM 180 mg/dL (74-106); POTASSIUM,K 2.5 mmol/L (3.5-5.1); SODIUM,NA 145 mmol/L (136-148)
[2021-02-10 14:48] LABS: CORONAVIRUS COVID-19 NAA NEGATIVE (NEGATIVE); INFLUENZA A NAA NEGATIVE (NEGATIVE); INFLUENZA B NAA NEGATIVE (NEGATIVE)
[2021-02-10] MEDS ORDERED: Furosemide 40 MG/4 ML VIAL IVPUSH ONE (14:50)
[2021-02-10] MEDS ORDERED: Nitroglycerin 2% Oint 1 GM UD Packet TOP ONE (14:50)
--- NOTE | 2021-02-10 14:50 | CR ---
INDICATION: Shortness of breath. COMPARISON: Two-view chest January 17, 2020. TECHNIQUE: Portable AP chest. FINDINGS: Transverse dimension of the cardiac silhouette is at the upper limits of normal. Evidence of pulmonary congestion. No pneumothorax or pleural effusion. Impression: Pulmonary congestion. Dictated by Elizabeth Valentin MD @ 02/10/2021 2:49:21 PM (Electronically Signed)
[2021-02-10] MEDS ORDERED: Aspirin 81 MG Tab.Chew PO ONE (14:51)
[2021-02-10] MEDS ORDERED: Pantoprazole 40 MG/10 ML Syringe IVPUSH ONE (14:58)
[2021-02-10] MEDS ORDERED: Potassium Chloride 10% 20 MEQ/15 ML Soln 30 ML UD Cup PO ONE (15:00)
[2021-02-10] MEDS ORDERED: Clopidogrel 75 MG Tab PO ONE (15:14)
[2021-02-10] MEDS ORDERED: Potassium Chloride Riders 40 MEQ in Premix Bag 1 BAG IV ONE (15:48)
[2021-02-10] MEDS ORDERED: LORazepam 2 MG/ML SDV IVPUSH ONE (15:54)
[2021-02-10] MEDS ORDERED: Lidocaine 1% PF 2 ML SDV INJECT ONE (16:00)
[2021-02-10 16:28] VITALS: BP 164/104; PULSE 97
== END 2021-02-10 17:22 ==
LOC: MW.ED 13:52
DX: I21.4 Non-ST elevation (NSTEMI) myocardial infarction (principal); I11.0 Hypertensive heart disease with heart failure; I50.9 Heart failure, unspecified; E87.6 Hypokalemia; K21.9 Gastro-esophageal reflux disease without esophagitis; E66.9 Obesity, unspecified; Z68.33 Body mass index [BMI] 33.0-33.9, adult; Z79.899 Other long term (current) drug therapy; Z20.822 Contact with and (suspected) exposure to COVID-19
CPT/HCPCS: 0240U; 36415; 71045; 80053; 83880; 84132; 84484; 85025; 93005; 96365; 96375; 99285; A9270; C9113; J2060; J3480

== ENCOUNTER 2021-08-02 12:21 | Emergency (ER) | payer SELFPAY ==
[2021-08-02 12:36] VITALS: BP 146/87; PULSE 94
== END 2021-08-02 12:58 | disposition left against medical advice (07) ==
LOC: MW.ED 12:21
DX: R94.31 Abnormal electrocardiogram [ECG] [EKG] (principal); E87.6 Hypokalemia; I10 Essential (primary) hypertension; I25.2 Old myocardial infarction; K21.9 Gastro-esophageal reflux disease without esophagitis; E66.9 Obesity, unspecified; Z79.899 Other long term (current) drug therapy; Z87.891 Personal history of nicotine dependence; Z68.31 Body mass index [BMI] 31.0-31.9, adult
CPT/HCPCS: 93005; 93010; 99283

== ENCOUNTER 2022-01-18 20:42 | Inpatient (IN) | payer MEDICAID ==
[2022-01-18] MEDS ORDERED: Calcium Gluconate 10% 1 GM/10 ML SDV IVPUSH ONE (20:57)
[2022-01-18] MEDS ORDERED: Lactated Ringers 1,000 ML IV STA (21:01)
[2022-01-18 21:43] LABS: CORONAVIRUS COVID-19 NAA NEGATIVE (NEGATIVE); INFLUENZA A NAA NEGATIVE (NEGATIVE); INFLUENZA B NAA NEGATIVE (NEGATIVE); RESPIRATORY SYNCYTIAL VIR NAA NEGATIVE (NEGATIVE)
[2022-01-18 22:20] LABS: CARBON DIOXIDE,CO2 34.1 mmol/L (21.0-32.0)
[2022-01-18 22:21] LABS: POTASSIUM,K 1.9 mmol/L (3.5-5.1)
[2022-01-18] MEDS ORDERED: Potassium Chloride 10% 20 MEQ/15 ML Soln 30 ML UD Cup PO ONE (22:21)
[2022-01-18] MEDS ORDERED: Lactated Ringers 1,000 ML IV SCH (22:30)
[2022-01-18] MEDS ORDERED: LORazepam 1 MG Tab PO STA (22:45)
[2022-01-18] MEDS: Potassium Chloride 100 ML IV SCH (22:50)
[2022-01-19] MEDS ORDERED: Magnesium Sulfate/Water 2 GM in Premix Bag 1 BAG IV ONE (00:35)
[2022-01-19 00:53] LABS: CARBON DIOXIDE,CO2 37.3 mmol/L (21.0-32.0); POTASSIUM,K 2.9 mmol/L (3.5-5.1)
[2022-01-19] MEDS: Potassium Chloride 100 ML IV SCH ×3 (01:05→13:23)
[2022-01-19] MEDS ORDERED: Albuterol/Ipratropium 3.0-0.5 MG/3 ML Neb Soln NEB PRN (04:58)
[2022-01-19] MEDS ORDERED: NS with KCl 40mEq 1,000 ML IV ONE (04:58)
[2022-01-19] MEDS ORDERED: Lactated Ringers 1,000 ML IV SCH (05:00)
[2022-01-19] MEDS ORDERED: Ondansetron 4 MG/2 ML SDV IVPUSH PRN (05:00)
[2022-01-19] MEDS: Pantoprazole 40 MG in Sodium Chloride 0.9% 10 ML IVPUSH SCH (05:13)
[2022-01-19 08:29] LABS: CARBON DIOXIDE,CO2 36.7 mmol/L (21.0-32.0); POTASSIUM,K 2.5 mmol/L (3.5-5.1)
[2022-01-19] MEDS ORDERED: Lactated Ringers 1,000 ML IV ONE (09:56)
[2022-01-19] MEDS ORDERED: Phosphorus #1 250 MG Tab PO ONE (12:20)
[2022-01-19] MEDS ORDERED: LORazepam 2 MG/ML SDV IVPUSH PRN ×2 (12:22→12:23)
[2022-01-19] MEDS: Lactated Ringers 1,000 ML IV SCH ×2 (16:35→23:44)
[2022-01-19] MEDS ORDERED: Diclofenac Sodium 75 MG Tab.EC PO PRN (17:11)
[2022-01-19] MEDS ORDERED: LORazepam 1 MG Tab PO PRN (17:15)
[2022-01-19] MEDS: Sertraline 50 MG Tab PO SCH (17:52)
[2022-01-19] MEDS ORDERED: traZODone 50 MG Tab ONE (20:41)
[2022-01-19] MEDS: traZODone 50 MG Tab PO SCH (20:47)
[2022-01-19] MEDS: diphenhydrAMINE 25 MG Cap PO SCH (20:47)
[2022-01-19] MEDS: Melatonin 3 MG Tab PO SCH (20:47)
[2022-01-19] MEDS ORDERED: Non-Formulary Medication 1 Each (Melatonin [Melatonin] 10 MG Tablet) PO SCH (21:00)
[2022-01-19] MEDS ORDERED: Potassium Chloride 10% 20 MEQ/15 ML Soln 30 ML UD Cup PO ONE (23:29)
[2022-01-20] MEDS: Pantoprazole 40 MG in Sodium Chloride 0.9% 10 ML IVPUSH SCH (04:44)
[2022-01-20] MEDS: Lactated Ringers 1,000 ML IV SCH ×3 (06:26→21:32)
[2022-01-20] MEDS ORDERED: Thiamine 100 MG in Sodium Chloride 0.9% 100 ML IV SCH (09:00)
[2022-01-20 09:39] LABS: CARBON DIOXIDE,CO2 35.7 mmol/L (21.0-32.0); POTASSIUM,K 3.9 mmol/L (3.5-5.1)
[2022-01-20] MEDS: Sertraline 50 MG Tab PO SCH (09:51)
[2022-01-20] MEDS: Folic Acid 1 MG/0.2 ML UD Syringe IV SCH (09:51)
[2022-01-20] MEDS: Potassium Chloride 20 MEQ Tab.ER PO SCH (09:51)
[2022-01-20] MEDS: Thiamine 200 MG/2 ML MDV IVPUSH SCH (09:52)
[2022-01-20] MEDS ORDERED: Polyethylene Glycol 3350 Powder 17 GM Packet PO PRN (12:31)
[2022-01-20] MEDS ORDERED: Acetaminophen 325 MG Tab PO PRN (12:31)
[2022-01-20] MEDS: traZODone 50 MG Tab PO SCH (21:35)
[2022-01-20] MEDS: diphenhydrAMINE 25 MG Cap PO SCH (21:35)
[2022-01-20] MEDS: Melatonin 3 MG Tab PO SCH (21:35)
[2022-01-21] MEDS: Lactated Ringers 1,000 ML IV SCH ×2 (05:34→15:33)
[2022-01-21] MEDS: Pantoprazole 40 MG in Sodium Chloride 0.9% 10 ML IVPUSH SCH (05:34)
[2022-01-21 07:45] LABS: CARBON DIOXIDE,CO2 33.2 mmol/L (21.0-32.0); POTASSIUM,K 3.4 mmol/L (3.5-5.1)
[2022-01-21] MEDS: Sertraline 50 MG Tab PO SCH (08:05)
[2022-01-21] MEDS: Potassium Chloride 20 MEQ Tab.ER PO SCH (08:05)
[2022-01-21] MEDS: Thiamine 200 MG/2 ML MDV IVPUSH SCH (08:06)
[2022-01-21] MEDS ORDERED: Potassium Chloride 20 MEQ Tab.ER PO ONE (08:09)
[2022-01-21] MEDS ORDERED: Magnesium Sulfate/Water 2 GM in Premix Bag 1 BAG IV ONE (08:09)
[2022-01-21] MEDS: Folic Acid 1 MG/0.2 ML UD Syringe IV SCH (09:07)
[2022-01-21] MEDS ORDERED: Labetalol 100 MG/20 ML MDV IVPUSH PRN (12:17)
[2022-01-21] MEDS ORDERED: Acetaminophen 500 MG Tab PO PRN (14:29)
[2022-01-21] MEDS: diphenhydrAMINE 25 MG Cap PO SCH (22:35)
[2022-01-21] MEDS: Melatonin 3 MG Tab PO SCH (22:36)
[2022-01-21] MEDS: traZODone 50 MG Tab PO SCH (22:36)
[2022-01-22] MEDS: Lactated Ringers 1,000 ML IV SCH ×2 (03:09→15:12)
[2022-01-22 06:28] LABS: CARBON DIOXIDE,CO2 29.7 mmol/L (21.0-32.0); POTASSIUM,K 3.7 mmol/L (3.5-5.1)
[2022-01-22] MEDS ORDERED: Pantoprazole 40 MG Tab.CR PO SCH (07:30)
[2022-01-22] MEDS: Potassium Chloride 20 MEQ Tab.ER PO SCH (08:54)
[2022-01-22] MEDS: Sertraline 50 MG Tab PO SCH (08:54)
[2022-01-22] MEDS ORDERED: Thiamine 100 MG Tab PO SCH (09:00)
[2022-01-22] MEDS ORDERED: Folic Acid 1 MG Tab PO SCH (09:00)
[2022-01-22 16:35] VITALS: BP 130/90; PULSE 81
== END 2022-01-22 15:55 | disposition home or self-care (01) | DRG 683 ==
LOC: MW.ED 20:42 → MW.MS 01-19 02:57
PROVIDERS: ADMIT Student in an Organized Health Care Education/Training Program; ATTEND Student in an Organized Health Care Education/Training Program
DX: N17.9 Acute kidney failure, unspecified (principal); E87.1 Hypo-osmolality and hyponatremia; E87.3 Alkalosis; F10.239 Alcohol dependence with withdrawal, unspecified; E87.6 Hypokalemia; E86.0 Dehydration; E83.42 Hypomagnesemia; R94.31 Abnormal electrocardiogram [ECG] [EKG]; F41.9 Anxiety disorder, unspecified; F17.210 Nicotine dependence, cigarettes, uncomplicated; F32.A Depression, unspecified; I10 Essential (primary) hypertension; D64.9 Anemia, unspecified; H54.7 Unspecified visual loss; K21.9 Gastro-esophageal reflux disease without esophagitis; K52.9 Noninfective gastroenteritis and colitis, unspecified; K27.9 Peptic ulcer, site unspecified, unspecified as acute or chronic, without hemorrhage or perforation; M54.9 Dorsalgia, unspecified; G89.29 Other chronic pain; E66.9 Obesity, unspecified; Z79.899 Other long term (current) drug therapy; I25.2 Old myocardial infarction; Z95.5 Presence of coronary angioplasty implant and graft; Z98.890 Other specified postprocedural states; M17.0 Bilateral primary osteoarthritis of knee; Z68.33 Body mass index [BMI] 33.0-33.9, adult
CPT/HCPCS: 0241U; 36415; 70450; 70450-26; 71045; 71045-26; 80048; 80053; 81001; 82550; 82803; 83605; 83735; 84100; 84443; 84484; 85025; 85610; 86850; 86900; 86901; 87040; 87045; 87046; 87324; 87449; 87899; 93005; 96361; 96365; 96366; 96368; 99285-25; A9270-GY; C9113; J0610; J3411; J3475; J3480; J3490; J7120

== ENCOUNTER 2023-06-26 20:29 | Emergency (ER) | payer MEDICAID ==
[2023-06-26] MEDS: Lidocaine 1% with EPINEPHrine 1:200,000 30 ML SDV INFILT STA (21:00)
[2023-06-26 22:17] VITALS: BP 135/97; PULSE 87
== END 2023-06-26 22:17 | disposition home or self-care (01) ==
LOC: MW.ED 20:29
DX: S61.412A Laceration without foreign body of left hand, initial encounter (principal); I50.9 Heart failure, unspecified; Z79.899 Other long term (current) drug therapy; W26.0XXA Contact with knife, initial encounter; Y93.89 Activity, other specified
CPT/HCPCS: 12001; 99282; J3490; 99283